=== PATIENT | female | born 1995 | race Caucasian/White ===

== ENCOUNTER 2020-08-05 17:15 | Outpatient (REF) | payer MEDICAID, SELFPAY ==
--- NOTE | ~2020-08-05 | US_ITS ---
EXAMINATION: US VENOUS ULTRASOUND WITH DOPPLER LOWER EXTREMITY, LEFT CLINICAL INFORMATION: Superficial thrombophlebitis. COMPARISON: None TECHNIQUE: Ultrasound of the deep veins is performed from the hip to the calf with compression sonography and color and pulse Doppler assessment. Spectral analysis with color-flow imaging is performed. FINDINGS: There is normal venous compression and respiratory variation and augmented flow. The visualized common femoral vein, superficial femoral vein, profunda femoral vein, popliteal vein, and the trifurcation region shows no evidence of deep venous thrombosis. There is no significant popliteal fossa cyst. Thrombosis of superficial veins in the calf is demonstrated. If the patient's symptoms persist, followup ultrasound in 5 days 7 days might be of value to exclude proximal propagation from a non-visualized calf vein. US/US venous duplex LE LT IMPRESSION: No DVT demonstrated in the left lower extremity. Thrombosis of superficial veins in the calf.
== END 2020-08-05 17:16 | disposition home or self-care (01) ==
LOC: HO.US 17:15
PROVIDERS: PCP Family Medicine; Visit Provider Nurse Practitioner Family
DX: M79.605 Pain in left leg (principal)
CPT/HCPCS: 93971

== ENCOUNTER 2021-07-14 13:48 | Emergency (ER) | payer OTHER, SELFPAY ==
--- NOTE | 2021-07-14 | ECG_ITS ---
Test Reason : abd pain Blood Pressure : / mmHG Vent. Rate : 099 BPM Atrial Rate : 099 BPM P-R Int : 150 ms QRS Dur : 076 ms QT Int : 358 ms P-R-T Axes : 031 035 -36 degrees QTc Int : 459 ms Normal sinus rhythm T wave abnormality, consider anterolateral ischemia Abnormal ECG No previous ECGs available Referred By: Generic ED Physician Electronically Signed By:Mihir Álvarez
--- NOTE | ~2021-07-14 | CT_ITS ---
EXAMINATION: CT CHEST, ABDOMEN AND PELVIS WITH CONTRAST CLINICAL INFORMATION: Back pain radiating to pelvis COMPARISON: No pertinent prior studies are available for comparison. TECHNIQUE: Multidetector volumetric imaging was performed from the thoracic inlet through the pubic symphysis following administration of oral and 85 mL of Omnipaque 300 intravenous contrast. Sagittal and coronal reformatted images were obtained on the technologist workstation. This CT examination was performed using dose optimization techniques as appropriate, variously including the following: *Automated exposure control *Adjustment of mA and/or kV according to patient size (this includes techniques or standardized protocols for targeted exams where dose is matched to indication/reason for exam; i.e. extremities or head) *Use of iterative reconstruction technique DLP: 508 mGy-cm FINDINGS: CHEST: LUNGS: The lungs are clear with no evidence of inflammation or nodules. MEDIASTINUM: The mediastinum is normal. Central vascular structures are unremarkable. No hilar or mediastinal lymphadenopathy. PERICARDIUM/PLEURA: There is no significant effusion. No pleural mass or thickening. CHEST WALL/AXILLA: Unremarkable. ABDOMEN/PELVIS: LIVER, GALLBLADDER, BILIARY TREE: Changes of diffuse hepatic steatosis. The gallbladder is unremarkable with no evidence of radiopaque gallstones, gallbladder wall thickening, or pericholecystic inflammatory changes. PANCREAS: Unremarkable. SPLEEN: Unremarkable. ADRENAL GLANDS: Unremarkable. KIDNEYS AND URETERS: The kidneys are normal in size, shape, and attenuation. No hydronephrosis or hydroureter or calculi seen. No perinephric stranding. BLADDER: Unremarkable. GASTROINTESTINAL TRACT: The small and large bowel are unremarkable. No inflammatory changes. Mild lymphadenopathy within the mesentery subcentimeter in size and might minor haziness within the root of the mesentery. ABDOMINAL WALL: No hernia is demonstrated. LYMPH NODES: Normal. VASCULAR: Unremarkable. PELVIC VISCERA: Uterus is deviated to the left of midline. The right ovary appears prominent measuring up to 4 cm. This is likely within normal limits for a young female. Left ovary normal. OSSEOUS STRUCTURES: Unremarkable. CT/CT angio chest PE protocol IMPRESSION: 1. No evidence of any dissection or aneurysm. No hemorrhage. 2. Changes of mesenteric lipodystrophy. Prominent right ovary likely physiologic. 3. Hepatomegaly changes of diffuse hepatic steatosis.
[2021-07-14 14:20] VITALS: BP 137/98; PULSE 100; RESP 18; TEMP 36.4; O2SAT 100; BMI 52.2
[2021-07-14] MEDS: Ondansetron ODT 4 MG TAB.RAPDIS TRANSLINGU (15:01)
[2021-07-14 15:29] LABS: MANUAL DIFF FLAG NO
[2021-07-14 15:34] LABS: Appearance Urine CLEAR; Basophils Percent Auto 0.4 % (0-2); Color Urine YELLOW; Eosinophils Absolute Auto 0.1 X10*3/uL (0.0-0.4); Eosinophils Percent Auto 0.6 % (0-4); Glucose Urine UA NEG (NEG); Hematocrit 36.3 % (37.0-47.0); Hemoglobin 10.5 g/dl (12.0-16.0); Imm Gran Abs Auto 0.03 X10*3/uL (0.00-0.03); Imm Gran Pct Auto 0.3 % (0.0-0.4); Leukocyte Esterase Urine NEG (NEG); Lymphocytes Absolute Auto 0.9 X10*3/uL (1.2-4.9); Lymphocytes Percent Auto 8.9 % (20-40); Mean Corpuscular HGB Conc 28.9 g/dl (31.0-35.0); Mean Corpuscular Hemoglobin 23.9 pg (27.0-33.0); Mean Corpuscular Volume 82.5 fL (80.0-98.0); Mean Platelet Volume 10.6 fL (9.4-12.3); Monocytes Absolute Auto 0.7 X10*3/uL (0.1-1.2); Monocytes Percent Auto 6.8 % (2-11); Neutrophils Absolute Auto 7.9 x10*3/uL (2.0-8.3); Nitrite Urine NEG (NEG); Platelet Count 350 X10*3/uL (160-400); Red Cell Distribution Width 18.2 % (11.0-16.0); UACC Culture Trigger NO; Urine Blood 2+ (NEG); Urine Ketones NEG (NEG); Urine Protein 2+ MG/DL (NEG-TRACE); White Blood Count 9.6 X10*3/uL (4.8-10.8)
[2021-07-14 15:39] LABS: UPreg QC Valid YES; Urine Pregnancy NEGATIVE (NEGATIVE)
[2021-07-14 15:50] LABS: Bacteria Urine 2+ /LPF; Squamous Epithelial Cell Urine 2+ /LPF; UACC CULT YES
[2021-07-14 15:51] LABS: Hyaline Casts Urine 0-2 /LPF
[2021-07-14 15:53] LABS: Anion Gap 14 (12-20); Blood Urea Nitrogen 8 mg/dL (9-16); Calcium 9.4 mg/dL (8.4-10.2); Carbon Dioxide 25 mmol/L (22-29); Chloride 104 mmol/L (96-108); Creatinine Clr Calc Pharmacy 114.9; Estimated Glomerular Filt Rate > 60; Glucose Random 99 mg/dL (60-115); Sodium 139 mmol/L (135-145)
--- NOTE | 2021-07-14 15:56 | ED.ABDPAIN ---
HPI - Abdominal Pain General Chief Complaint: Abdominal Pain <Courtney Orellana NP - Last Filed: 07/14/21 17:53> Stated Complaint: back pain low bp <Courtney Orellana NP - Last Filed: 07/14/21 17:53> Time Seen by Provider: 07/14/21 14:52 <Courtney Orellana NP - Last Filed: 07/14/21 17:53> Source: patient <Courtney Orellana NP - Last Filed: 07/14/21 17:53> Mode of arrival: ambulatory <Courtney Orellana NP - Last Filed: 07/14/21 17:53> Limitations: no limitations <Courtney Orellana NP - Last Filed: 07/14/21 17:53> History of Present Illness HPI narrative: 25 yo Female with a history of pulmonary embolism several years ago not currently on anticoagulation, morbid obesity, hypertension, hypothyroidism, asthma here with complaints of lower back pain with radiation to the pelvis noted this morning. Patient tells me that she decided to into the shower and while she was there she felt very lightheaded like she was going to pass out. She got out of shower and checked her blood pressure and was 83/45. Patient tells me she sat down and ate some food in her blood pressure improved without any intervention. Of note the patient did take her blood pressure medications prior To getting into the shower. Patient tells me now she feels pain in her upper abdomen and she had 1 episode of vomiting prior to arrival. Patient denies any chest pain, shortness of breath, cough, fever, leg swelling or leg pain. Patient is unsure why she had the PE in the past and had negative w/u from hematology per patient. <Courtney Orellana NP - Last Filed: 07/14/21 17:53> Related Data Home Medications: Home Medications Medication Instructions Recorded Confirmed doxycycline calcium 100 mg PO DAILY 11/24/20 01/24/21 ergocalciferol (vitamin D2) 1,250 1 cap PO QWEEK 11/24/20 01/24/21 mcg (50,000 unit) capsule ferrous sulfate 325 mg (65 mg 1 tab PO Q OTHER DAY 11/24/20 01/24/21 iron) tablet levothyroxine 125 mcg tablet 1 tab PO DAILY 11/24/20 01/24/21 lisinopril 10 mg tablet 1 tab PO DAILY 11/24/20 01/24/21 Previous Rx's Medication Instructions Recorded nitrofurantoin 100 mg PO Q12H 5 Days #10 cap 07/14/21 monohydrate/macrocrystals 100 mg capsule (Macrobid) <BROOKLYN Mckeon Last Filed: 07/14/21 17:53> Allergies/Adverse Reactions: Allergies Allergy/AdvReac Type Severity Reaction Status Date / Time Sulfa (Sulfonamide Allergy Hives Verified 01/24/21 14:36 Antibiotics) sulfamethoxazole Allergy Swelling Verified 01/24/21 14:36 [From Bactrim] trimethoprim [From Bactrim] Allergy Swelling Verified 01/24/21 14:36 <Courtney Orellana NP - Last Filed: 07/14/21 17:53> Review of Systems Review of Systems Yes all other systems are reviewed and are negative <BROOKLYN Mckeon Last Filed: 07/14/21 17:53> Constitutional: Reports no additional constitutional complaints, Denies body ache(s), Denies chills, Denies fever(s), Denies headache(s) and Denies weakness <BROOKLYN Mckeon Last Filed: 07/14/21 17:53> Eyes: Reports no additional eye complaints and Denies change in vision <Courtney Orellana NP - Last Filed: 07/14/21 17:53> Reports system reviewed and no additional complaints, except as documented, Reports dizziness, Denies headache(s), Denies nasal congestion, Denies nasal discharge and Denies neck pain <Courtney Orellana NP - Last Filed: 07/14/21 17:53> Cardiovascular: Reports no additional cardiovascular complaints, Denies chest pain, Denies leg edema and Denies dyspnea <BROOKLYN Mckeon Last Filed: 07/14/21 17:53> Respiratory: Reports no additional respiratory complaints, Denies cough and Denies dyspnea <BROOKLYN Mckeon Last Filed: 07/14/21 17:53> Gastrointestinal: Reports no additional gastrointestinal complaints, Reports abdominal pain, Denies diarrhea, Reports nausea and Reports vomiting <Courtney Orellana NP - Last Filed: 07/14/21 17:53> Genitourinary: Reports no additional female genitourinary complaints and Denies urinary incontinence <Courtney Orellana NP - Last Filed: 07/14/21 17:53> Musculoskeletal: Reports no additional musculoskeletal complaints, Reports back pain, Denies arthralgias, Denies joint swelling, Denies neck pain, Denies numbness and Denies tingling <Courtney Orellana NP - Last Filed: 07/14/21 17:53> Skin/Breast: Reports system reviewed and no additional complaints, except as docu and Denies rash <Courtney Orellana NP - Last Filed: 07/14/21 17:53> Reports system reviewed and no additional complaints, except as documented, Reports dizziness, Denies headache(s), Denies numbness, Denies tingling and Denies weakness <Courtney Orellana NP - Last Filed: 07/14/21 17:53> [facility] Past Medical History Attestation statement: The following information was validated with the patient. <Courtney Orellana NP - Last Filed: 07/14/21 17:53> Source: old records reviewed and nursing notes reviewed <Courtney Orellana NP - Last Filed: 07/14/21 17:53> Medical History: Medical History Anemia Asthma Hidradenitis suppurativa High blood pressure History of pulmonary embolism Hypothyroidism <Courtney Orellana NP - Last Filed: 07/14/21 17:53> Surgical History: Surgical History No pertinent past surgical history <Courtney Orellana NP - Last Filed: 07/14/21 17:53> Family History Family History: Family History Mother Diabetes type 2, controlled Sister Diabetes type 2, controlled Maternal Grandmother ALS (amyotrophic lateral sclerosis) Hypothyroidism Unknown Lupus Unknown High blood pressure <Courtney Orellana NP - Last Filed: 07/14/21 17:53> Social History Social History: Social History Household Members: Family Alcohol intake: never Patient Tobacco Use Status: Never used Tobacco Use of substances other than those prescribed or required for medical reasons: No Advance Directives: No Advance Directives Information Provided: No <Courtney Orellana NP - Last Filed: 07/14/21 17:53> Physical Exam ED Vital Signs: Vital Signs - 24 hr 07/14/21 14:20 07/14/21 16:13 07/14/21 18:13 Temperature 97.5 F 98.2 F 98.9 F Pulse Rate 100 95 95 Respiratory Rate 18 18 22 H Blood Pressure 137/98 H 110/54 L 126/77 Pulse Oximetry 100 99 99 07/14/21 19:42 07/14/21 21:53 07/15/21 00:09 Temperature 98.7 F 99.1 F Pulse Rate 98 99 101 H Respiratory Rate 18 20 20 Blood Pressure 139/87 136/85 110/51 L Pulse Oximetry 100 98 99 BMI result Body Mass Index 52.2 <Courtney Orellana NP - Last Filed: 07/14/21 17:53> Vital Signs - 24 hr 07/14/21 14:20 07/14/21 16:13 07/14/21 18:13 Temperature 97.5 F 98.2 F 98.9 F Pulse Rate 100 95 95 Respiratory Rate 18 18 22 H Blood Pressure 137/98 H 110/54 L 126/77 Pulse Oximetry 100 99 99 07/14/21 19:42 07/14/21 21:53 07/15/21 00:09 Temperature 98.7 F 99.1 F Pulse Rate 98 99 101 H Respiratory Rate 18 20 20 Blood Pressure 139/87 136/85 110/51 L Pulse Oximetry 100 98 99 BMI result Body Mass Index 52.2 <DAHIANA Dunaway - Last Filed: 07/15/21 00:24> Const General: cooperative, healthy appearing and no acute distress <Courtney Orellana NP - Last Filed: 07/14/21 17:53> Nutritional Appearance: obese <Courtney Orellana NP - Last Filed: 07/14/21 17:53> Orientation/consciousness: patient oriented x3 <Courtney Orellana NP - Last Filed: 07/14/21 17:53> Limitations: no limitations <Courtney Orellana NP - Last Filed: 07/14/21 17:53> HENMT Head: Yes normal to inspection <Courtney Orellana NP - Last Filed: 07/14/21 17:53> Ears: hearing grossly normal bilaterally <Courtney Orellana NP - Last Filed: 07/14/21 17:53> General nose exam: Normal external nose present <Courtney Orellana NP - Last Filed: 07/14/21 17:53> Face and sinus: Yes normal facial exam <Courtney Orellana NP - Last Filed: 07/14/21 17:53> Mouth: Normal oral and palatal mucosa present <Courtney Orellana NP - Last Filed: 07/14/21 17:53> Teeth and gingiva: dentition normal <Courtney Orellana NP - Last Filed: 07/14/21 17:53> Throat: Yes posterior oropharynx normal, Yes tonsils normal and Yes uvula midline <Courtney Orellana NP - Last Filed: 07/14/21 17:53> Eyes General: appearance normal, both eyes and all related structures <Courtney Orellana NP - Last Filed: 07/14/21 17:53> Pupils: Equal, round and reactive pupils present <Courtney Orellana NP - Last Filed: 07/14/21 17:53> Neck Neck: Yes normal visual inspection, Yes full ROM, Yes no lymphadenopathy and Yes no meningeal signs <Courtney Orellana NP - Last Filed: 07/14/21 17:53> Chest Chest palpation & inspection: normal inspection of the chest <Courtney Orellana NP - Last Filed: 07/14/21 17:53> Resp Effort & Inspection: normal respiratory effort <Courtney Orellana NP - Last Filed: 07/14/21 17:53> Auscultation: clear to auscultation bilaterally <Courtney Orellana NP - Last Filed: 07/14/21 17:53> Cardio Rate: regular rate <Courtney Orellana NP - Last Filed: 07/14/21 17:53> Rhythm: regular rhythm <Courtney Orellana NP - Last Filed: 07/14/21 17:53> Peripheral pulses: Peripheral pulses 2+ throughout <Courtney Orellana NP - Last Filed: 07/14/21 17:53> GI Inspection: Yes normal to inspection <Courtney Orellana NP - Last Filed: 07/14/21 17:53> Palpation (GI): Soft to palpation and Tenderness to palpation present (GI) (epigastric/RUQ TTP ) <Courtney Orellana NP - Last Filed: 07/14/21 17:53> General: Yes no CVA tenderness <Courtney Orellana NP - Last Filed: 07/14/21 17:53> Back/Spine/Pelvis Other: There is some tenderness the lower spine with no midline tenderness, step-offs deformities. There is full range of motion. <Courtney Orellana NP - Last Filed: 07/14/21 17:53> Back: no CVA tenderness <Courtney Orellana NP - Last Filed: 07/14/21 17:53> Skin General skin exam: no rashes or lesions noted <Courtney Orellana NP - Last Filed: 07/14/21 17:53> Neuro General: patient oriented x3, moves all extremities and no meningeal signs <Courtney Orellana NP - Last Filed: 07/14/21 17:53> Cranial nerves: Yes Equal, round and reactive pupils present <Courtney Orellana NP - Last Filed: 07/14/21 17:53> Extrem General: Yes normal to inspection, Yes no pedal edema and Yes no calf tenderness <Courtney Orellana NP - Last Filed: 07/14/21 17:53> Course Course Course Narrative: 25-year-old female with a history of obesity, high blood pressure, pulmonary embolism not on blood thinning medication, hypothyroidism here with reports of back pain with radiation to the abdominal area today with a near syncopal episode that occurred while she was showering with subsequent vomiting. On exam the patient has some tenderness in the abdomen. No CVA tenderness. She does have some soft tissue tenderness the low spine. She has a history of pulmonary embolism is not currently anticoagulated. She has T-wave inversions diffusely in her EKG. no chest pain. will check labs, EKG, UA, urine . Anticipate patient will need imaging <Courtney Orellana NP - Last Filed: 07/14/21 17:53> Reevaluation(s) Reevaluation #1: CTA CHEST, CT A/P ordered and pending. Sign out to Astrid TALBOT pending imaging. <Courtney Orellana NP - Last Filed: 07/14/21 17:53> Time: 18:00 <Courtney Orellana NP - Last Filed: 07/14/21 17:53> Reevaluation #2: Second troponin negative. Patient not experiencing chest pain unlikely that this is ACS. CT of the abdomen and pelvis with no evidence of dissection or aneurysm. No hemorrhage. No acute findings. Will call [facility], to ask for a read on CTA to rule out PE. <DAHIANA Dunaway - Last Filed: 07/15/21 00:24> Time: 19:28 <DAHIANA Dunaway - Last Filed: 07/15/21 00:24> Reevaluation #3: CTA scan of the chest was limited however no evidence signs of large pe no evidence of right heart strain. Patient is saturating well on room air, she is not tachycardic, appears well unlikely PE. Trop negative X2 unlikley acs. Patient reports that her pain has subsided. She reports no shortness of breath, no chest pain. On my examination she has no calf tenderness on palpation she denies leg pain, leg cramping, or tenderness of the calf area. Patient tells me she is feeling better and would like to go home. Attached to findings from abdominal CT and CTA to patient's discharge. Advised her to return with new or worsening symptoms. Outlined worrisome signs and symptoms on discharge. Comfortable w/ discharge home w/ pcp follow up Upon discharge patient had clear lungs. Regular rate and rhythm. Negative Adrián bilaterally. And stable vitals. <DHAIANA Dunaway - Last Filed: 07/15/21 00:24> Time: 00:21 <DAHIANA Dunaway - Last Filed: 07/15/21 00:24> MDM - Abdominal Pain MDM Narrative Medical decision making narrative: Renal colic, pe, ACS <Courtney Orellana NP - Last Filed: 07/14/21 17:53> Medical Records Attestation: I reviewed the patient's medical records. <Courtney Orellana NP - Last Filed: 07/14/21 17:53> Lab Data Attestation: I reviewed the patient's lab results. <Courtney Orellana NP - Last Filed: 07/14/21 17:53> Result diagrams: : 07/14/21 14:59 07/14/21 14:59 <Courtney Orellana NP - Last Filed: 07/14/21 17:53> Labs: Lab Results 07/14/21 07/14/21 07/14/21 Range/Units 14:59 14:59 14:59 WBC 9.6 (4.8-10.8) X10*3/uL RBC 4.40 (4.20-5.50) X10*6/uL Hgb 10.5 L (12.0-16.0) g/dl Hct 36.3 L (37.0-47.0) % MCV 82.5 (80.0-98.0) fL MCH 23.9 L (27.0-33.0) pg MCHC 28.9 L (31.0-35.0) g/dl RDW 18.2 H (11.0-16.0) % Plt Count 350 (160-400) X10*3/uL MPV 10.6 (9.4-12.3) fL Immature Gran % (Auto) 0.3 (0.0-0.4) % Neut % (Auto) 83.0 H (45-73) % Lymph % (Auto) 8.9 L (20-40) % [place] % (Auto) 6.8 (2-11) % Eos % (Auto) 0.6 (0-4) % Baso % (Auto) 0.4 (0-2) % Lymph # (Auto) 0.9 L (1.2-4.9) X10*3/uL [place] # (Auto) 0.7 (0.1-1.2) X10*3/uL Eos # (Auto) 0.1 (0.0-0.4) X10*3/uL Baso # (Auto) 0.0 (0.0-0.2) X10*3/uL Abs Immat Gran (auto) 0.03 (0.00-0.03) X10*3/uL Absolute Neuts (auto) 7.9 (2.0-8.3) x10*3/uL Absolute Nucleated RBC 0.000 (0.0-0.012) X10*3/uL Nucleated RBC % (auto) 0.0 (0.0-0.2) /100WBC PT (9.9-13.0) SEC INR (0.9-1.1) Sodium (135-145) mmol/L Potassium (3.3-5.1) mmol/L Chloride (96-108) mmol/L Carbon Dioxide (22-29) mmol/L Anion Gap (12-20) BUN (9-16) mg/dL Creatinine (0.5-1.4) mg/dL Estim Creat Clear Calc Estimated GFR Random Glucose (60-115) mg/dL Calcium (8.4-10.2) mg/dL Magnesium (1.6-2.6) mg/dL Total Bilirubin (0.0-1.0) mg/dL Direct Bilirubin (0.0-0.5) mg/dL AST (5-31) U/L ALT (0-31) U/L Alkaline Phosphatase (39-117) U/L Troponin I High Sens (<3.5-17.0) ng/L Total Protein (6.5-8.0) g/dL Albumin (3.5-5.0) g/dL Urine Color YELLOW Urine Appearance CLEAR Urine pH 7.0 (5.0-8.0) Ur Specific [place] 1.020 (1.005-1.025) Urine Protein 2+ H (NEG-TRACE) MG/DL Urine Glucose (UA) NEG (NEG) MG/DL Urine Ketones NEG (NEG) MG/DL Urine Blood 2+ H (NEG) Urine Nitrite NEG (NEG) Ur Leukocyte Esterase NEG (NEG) Urine RBC 15-29 H (0) /HPF Urine WBC 5-9 H (0-4) /HPF Ur Squamous Epith Cells 2+ /LPF Urine Bacteria 2+ /LPF Hyaline Casts 0-2 /LPF Urine Test NEGATIVE (NEGATIVE) 07/14/21 07/14/21 07/14/21 Range/Units 14:59 16:12 16:12 WBC (4.8-10.8) X10*3/uL RBC (4.20-5.50) X10*6/uL Hgb (12.0-16.0) g/dl Hct (37.0-47.0) % MCV (80.0-98.0) fL MCH (27.0-33.0) pg MCHC (31.0-35.0) g/dl RDW (11.0-16.0) % Plt Count (160-400) X10*3/uL MPV (9.4-12.3) fL Immature Gran % (Auto) (0.0-0.4) % Neut % (Auto) (45-73) % Lymph % (Auto) (20-40) % [place] % (Auto) (2-11) % Eos % (Auto) (0-4) % Baso % (Auto) (0-2) % Lymph # (Auto) (1.2-4.9) X10*3/uL [place] # (Auto) (0.1-1.2) X10*3/uL Eos # (Auto) (0.0-0.4) X10*3/uL Baso # (Auto) (0.0-0.2) X10*3/uL Abs Immat Gran (auto) (0.00-0.03) X10*3/uL Absolute Neuts (auto) (2.0-8.3) x10*3/uL Absolute Nucleated RBC (0.0-0.012) X10*3/uL Nucleated RBC % (auto) (0.0-0.2) /100WBC PT 13.8 H (9.9-13.0) SEC INR 1.2 H (0.9-1.1) Sodium 139 (135-145) mmol/L Potassium 4.0 (3.3-5.1) mmol/L Chloride 104 (96-108) mmol/L Carbon Dioxide 25 (22-29) mmol/L Anion Gap 14 (12-20) BUN 8 L (9-16) mg/dL Creatinine 0.84 (0.5-1.4) mg/dL Estim Creat Clear Calc 114.9 Estimated GFR > 60 Random Glucose 99 (60-115) mg/dL Calcium 9.4 (8.4-10.2) mg/dL Magnesium 2.2 (1.6-2.6) mg/dL Total Bilirubin 0.6 (0.0-1.0) mg/dL Direct Bilirubin 0.2 (0.0-0.5) mg/dL AST 67 H (5-31) U/L ALT 85 H (0-31) U/L Alkaline Phosphatase 92 (39-117) U/L Troponin I High Sens 3.9 (<3.5-17.0) ng/L Total Protein 8.0 (6.5-8.0) g/dL Albumin 4.2 (3.5-5.0) g/dL Urine Color Urine Appearance Urine pH (5.0-8.0) Ur Specific [place] (1.005-1.025) Urine Protein (NEG-TRACE) MG/DL Urine Glucose (UA) (NEG) MG/DL Urine Ketones (NEG) MG/DL Urine Blood (NEG) Urine Nitrite (NEG) Ur Leukocyte Esterase (NEG) Urine RBC (0) /HPF Urine WBC (0-4) /HPF Ur Squamous Epith Cells /LPF Urine Bacteria /LPF Hyaline Casts /LPF Urine Test (NEGATIVE) 07/14/21 Range/Units 18:13 WBC (4.8-10.8) X10*3/uL RBC (4.20-5.50) X10*6/uL Hgb (12.0-16.0) g/dl Hct (37.0-47.0) % MCV (80.0-98.0) fL MCH (27.0-33.0) pg MCHC (31.0-35.0) g/dl RDW (11.0-16.0) % Plt Count (160-400) X10*3/uL MPV (9.4-12.3) fL Immature Gran % (Auto) (0.0-0.4) % Neut % (Auto) (45-73) % Lymph % (Auto) (20-40) % [place] % (Auto) (2-11) % Eos % (Auto) (0-4) % Baso % (Auto) (0-2) % Lymph # (Auto) (1.2-4.9) X10*3/uL [place] # (Auto) (0.1-1.2) X10*3/uL Eos # (Auto) (0.0-0.4) X10*3/uL Baso # (Auto) (0.0-0.2) X10*3/uL Abs Immat Gran (auto) (0.00-0.03) X10*3/uL Absolute Neuts (auto) (2.0-8.3) x10*3/uL Absolute Nucleated RBC (0.0-0.012) X10*3/uL Nucleated RBC % (auto) (0.0-0.2) /100WBC PT (9.9-13.0) SEC INR (0.9-1.1) Sodium (135-145) mmol/L Potassium (3.3-5.1) mmol/L Chloride (96-108) mmol/L Carbon Dioxide (22-29) mmol/L Anion Gap (12-20) BUN (9-16) mg/dL Creatinine (0.5-1.4) mg/dL Estim Creat Clear Calc Estimated GFR Random Glucose (60-115) mg/dL Calcium (8.4-10.2) mg/dL Magnesium (1.6-2.6) mg/dL Total Bilirubin (0.0-1.0) mg/dL Direct Bilirubin (0.0-0.5) mg/dL AST (5-31) U/L ALT (0-31) U/L Alkaline Phosphatase (39-117) U/L Troponin I High Sens < 3.5 (<3.5-17.0) ng/L Total Protein (6.5-8.0) g/dL Albumin (3.5-5.0) g/dL Urine Color Urine Appearance Urine pH (5.0-8.0) Ur Specific [place] (1.005-1.025) Urine Protein (NEG-TRACE) MG/DL Urine Glucose (UA) (NEG) MG/DL Urine Ketones (NEG) MG/DL Urine Blood (NEG) Urine Nitrite (NEG) Ur Leukocyte Esterase (NEG) Urine RBC (0) /HPF Urine WBC (0-4) /HPF Ur Squamous Epith Cells /LPF Urine Bacteria /LPF Hyaline Casts /LPF Urine Test (NEGATIVE) <Courtney Orellana NP - Last Filed: 07/14/21 17:53> Lab Results 07/14/21 07/14/21 07/14/21 Range/Units 14:59 14:59 14:59 WBC 9.6 (4.8-10.8) X10*3/uL RBC 4.40 (4.20-5.50) X10*6/uL Hgb 10.5 L (12.0-16.0) g/dl Hct 36.3 L (37.0-47.0) % MCV 82.5 (80.0-98.0) fL MCH 23.9 L (27.0-33.0) pg MCHC 28.9 L (31.0-35.0) g/dl RDW 18.2 H (11.0-16.0) % Plt Count 350 (160-400) X10*3/uL MPV 10.6 (9.4-12.3) fL Immature Gran % (Auto) 0.3 (0.0-0.4) % Neut % (Auto) 83.0 H (45-73) % Lymph % (Auto) 8.9 L (20-40) % [place] % (Auto) 6.8 (2-11) % Eos % (Auto) 0.6 (0-4) % Baso % (Auto) 0.4 (0-2) % Lymph # (Auto) 0.9 L (1.2-4.9) X10*3/uL [place] # (Auto) 0.7 (0.1-1.2) X10*3/uL Eos # (Auto) 0.1 (0.0-0.4) X10*3/uL Baso # (Auto) 0.0 (0.0-0.2) X10*3/uL Abs Immat Gran (auto) 0.03 (0.00-0.03) X10*3/uL Absolute Neuts (auto) 7.9 (2.0-8.3) x10*3/uL Absolute Nucleated RBC 0.000 (0.0-0.012) X10*3/uL Nucleated RBC % (auto) 0.0 (0.0-0.2) /100WBC PT (9.9-13.0) SEC INR (0.9-1.1) Sodium (135-145) mmol/L Potassium (3.3-5.1) mmol/L Chloride (96-108) mmol/L Carbon Dioxide (22-29) mmol/L Anion Gap (12-20) BUN (9-16) mg/dL Creatinine (0.5-1.4) mg/dL Estim Creat Clear Calc Estimated GFR Random Glucose (60-115) mg/dL Calcium (8.4-10.2) mg/dL Magnesium (1.6-2.6) mg/dL Total Bilirubin (0.0-1.0) mg/dL Direct Bilirubin (0.0-0.5) mg/dL AST (5-31) U/L ALT (0-31) U/L Alkaline Phosphatase (39-117) U/L Troponin I High Sens (<3.5-17.0) ng/L Total Protein (6.5-8.0) g/dL Albumin (3.5-5.0) g/dL Urine Color YELLOW Urine Appearance CLEAR Urine pH 7.0 (5.0-8.0) Ur Specific [place] 1.020 (1.005-1.025) Urine Protein 2+ H (NEG-TRACE) MG/DL Urine Glucose (UA) NEG (NEG) MG/DL Urine Ketones NEG (NEG) MG/DL Urine Blood 2+ H (NEG) Urine Nitrite NEG (NEG) Ur Leukocyte Esterase NEG (NEG) Urine RBC 15-29 H (0) /HPF Urine WBC 5-9 H (0-4) /HPF Ur Squamous Epith Cells 2+ /LPF Urine Bacteria 2+ /LPF Hyaline Casts 0-2 /LPF Urine Test NEGATIVE (NEGATIVE) 07/14/21 07/14/21 07/14/21 Range/Units 14:59 16:12 16:12 WBC (4.8-10.8) X10*3/uL RBC (4.20-5.50) X10*6/uL Hgb (12.0-16.0) g/dl Hct (37.0-47.0) % MCV (80.0-98.0) fL MCH (27.0-33.0) pg MCHC (31.0-35.0) g/dl RDW (11.0-16.0) % Plt Count (160-400) X10*3/uL MPV (9.4-12.3) fL Immature Gran % (Auto) (0.0-0.4) % Neut % (Auto) (45-73) % Lymph % (Auto) (20-40) % [place] % (Auto) (2-11) % Eos % (Auto) (0-4) % Baso % (Auto) (0-2) % Lymph # (Auto) (1.2-4.9) X10*3/uL [place] # (Auto) (0.1-1.2) X10*3/uL Eos # (Auto) (0.0-0.4) X10*3/uL Baso # (Auto) (0.0-0.2) X10*3/uL Abs Immat Gran (auto) (0.00-0.03) X10*3/uL Absolute Neuts (auto) (2.0-8.3) x10*3/uL Absolute Nucleated RBC (0.0-0.012) X10*3/uL Nucleated RBC % (auto) (0.0-0.2) /100WBC PT 13.8 H (9.9-13.0) SEC INR 1.2 H (0.9-1.1) Sodium 139 (135-145) mmol/L Potassium 4.0 (3.3-5.1) mmol/L Chloride 104 (96-108) mmol/L Carbon Dioxide 25 (22-29) mmol/L Anion Gap 14 (12-20) BUN 8 L (9-16) mg/dL Creatinine 0.84 (0.5-1.4) mg/dL Estim Creat Clear Calc 114.9 Estimated GFR > 60 Random Glucose 99 (60-115) mg/dL Calcium 9.4 (8.4-10.2) mg/dL Magnesium 2.2 (1.6-2.6) mg/dL Total Bilirubin 0.6 (0.0-1.0) mg/dL Direct Bilirubin 0.2 (0.0-0.5) mg/dL AST 67 H (5-31) U/L ALT 85 H (0-31) U/L Alkaline Phosphatase 92 (39-117) U/L Troponin I High Sens 3.9 (<3.5-17.0) ng/L Total Protein 8.0 (6.5-8.0) g/dL Albumin 4.2 (3.5-5.0) g/dL Urine Color Urine Appearance Urine pH (5.0-8.0) Ur Specific [place] (1.005-1.025) Urine Protein (NEG-TRACE) MG/DL Urine Glucose (UA) (NEG) MG/DL Urine Ketones (NEG) MG/DL Urine Blood (NEG) Urine Nitrite (NEG) Ur Leukocyte Esterase (NEG) Urine RBC (0) /HPF Urine WBC (0-4) /HPF Ur Squamous Epith Cells /LPF Urine Bacteria /LPF Hyaline Casts /LPF Urine Test (NEGATIVE) 07/14/21 Range/Units 18:13 WBC (4.8-10.8) X10*3/uL RBC (4.20-5.50) X10*6/uL Hgb (12.0-16.0) g/dl Hct (37.0-47.0) % MCV (80.0-98.0) fL MCH (27.0-33.0) pg MCHC (31.0-35.0) g/dl RDW (11.0-16.0) % Plt Count (160-400) X10*3/uL MPV (9.4-12.3) fL Immature Gran % (Auto) (0.0-0.4) % Neut % (Auto) (45-73) % Lymph % (Auto) (20-40) % [place] % (Auto) (2-11) % Eos % (Auto) (0-4) % Baso % (Auto) (0-2) % Lymph # (Auto) (1.2-4.9) X10*3/uL [place] # (Auto) (0.1-1.2) X10*3/uL Eos # (Auto) (0.0-0.4) X10*3/uL Baso # (Auto) (0.0-0.2) X10*3/uL Abs Immat Gran (auto) (0.00-0.03) X10*3/uL Absolute Neuts (auto) (2.0-8.3) x10*3/uL Absolute Nucleated RBC (0.0-0.012) X10*3/uL Nucleated RBC % (auto) (0.0-0.2) /100WBC PT (9.9-13.0) SEC INR (0.9-1.1) Sodium (135-145) mmol/L Potassium (3.3-5.1) mmol/L Chloride (96-108) mmol/L Carbon Dioxide (22-29) mmol/L Anion Gap (12-20) BUN (9-16) mg/dL Creatinine (0.5-1.4) mg/dL Estim Creat Clear Calc Estimated GFR Random Glucose (60-115) mg/dL Calcium (8.4-10.2) mg/dL Magnesium (1.6-2.6) mg/dL Total Bilirubin (0.0-1.0) mg/dL Direct Bilirubin (0.0-0.5) mg/dL AST (5-31) U/L ALT (0-31) U/L Alkaline Phosphatase (39-117) U/L Troponin I High Sens < 3.5 (<3.5-17.0) ng/L Total Protein (6.5-8.0) g/dL Albumin (3.5-5.0) g/dL Urine Color Urine Appearance Urine pH (5.0-8.0) Ur Specific [place] (1.005-1.025) Urine Protein (NEG-TRACE) MG/DL Urine Glucose (UA) (NEG) MG/DL Urine Ketones (NEG) MG/DL Urine Blood (NEG) Urine Nitrite (NEG) Ur Leukocyte Esterase (NEG) Urine RBC (0) /HPF Urine WBC (0-4) /HPF Ur Squamous Epith Cells /LPF Urine Bacteria /LPF Hyaline Casts /LPF Urine Test (NEGATIVE) <DAHIANA Dunaway - Last Filed: 07/15/21 00:24> ECG Data Attestation: I personally reviewed and interpreted this ECG as follows: <Courtney Orellana NP - Last Filed: 07/14/21 17:53> ECG interpretation date: 07/14/21 <Courtney Orellana NP - Last Filed: 07/14/21 17:53> ECG interpretation time: 14:42 <Courtney Orellana NP - Last Filed: 07/14/21 17:53> Interpretation: normal sinus rhythm with a rate of 99, normal CA, normal QRS , normal QT diffuse ST depressions leads V1 through V6 <Courtney Orellana NP - Last Filed: 07/14/21 17:53> Critical Care Time Critical Care Time Critical Care Time: No <DAHIANA Dunaway - Last Filed: 07/15/21 00:24> Discharge Plan Discharge Clinical Impression: UTI (urinary tract infection), Near syncope, Acute electrocardiogram changes <Courtney Orellana NP - Last Filed: 07/14/21 17:53> Patient Disposition: Still a Patient <Courtney Orellana NP - Last Filed: 07/14/21 17:53> Instructions: Urinary Tract Infection in Women (DC), Near Syncope (ED) <Courtney Orellana NP - Last Filed: 07/14/21 17:53> Additional Instructions: Take your medications as prescribed. If you were prescribed antibiotics today, it is important that you take your medication to their entirety, do not skip any doses, do not finish them early. Follow-up with your primary care provider this week. Return to the emergency department with new or worsening symptoms. Such as fevers, chills, chest pain, shortness of breath, nausea, vomiting, dizziness, headache, vision changes, lethargy, weakness, leg swelling, calf pain In case of emergency call 911 <BROOKLYN Mckeon Last Filed: 07/14/21 17:53> Prescriptions: New nitrofurantoin monohyd/m-cryst [Macrobid] 100 mg capsule 100 mg PO Q12H 5 Days Qty: 10 0RF Rx Instructions: must administer with a meal/food No Action ferrous sulfate 325 mg (65 mg iron) tablet 1 tab PO Q OTHER DAY 0RF levothyroxine 125 mcg tablet 1 tab PO DAILY 0RF lisinopril 10 mg tablet 1 tab PO DAILY 0RF ergocalciferol (vitamin D2) 1,250 mcg (50,000 unit) capsule 1 cap PO QWEEK 0RF doxycycline calcium 100 mg PO DAILY 0RF <Courtney Orellana NP - Last Filed: 07/14/21 17:53> Referrals: Rosalind Silva DO [Primary Care Provider] - 2 days <Courtney Orellana NP - Last Filed: 07/14/21 17:53> Stand Alone Forms: Work/School Release <Courtney Orellana NP - Last Filed: 07/14/21 17:53>
[2021-07-14 16:13] VITALS: BP 110/54; PULSE 95; RESP 18; TEMP 36.8; O2SAT 99
--- NOTE | 2021-07-14 16:14 | PC.NURSE ---
pt a&ox3, iv inserted, labs drawn, vss, will continue to monitor
[2021-07-14 16:20] LABS: Alanine Aminotransferase 85 U/L (0-31); Albumin Level 4.2 g/dL (3.5-5.0); Alkaline Phosphatase 92 U/L (39-117); Aspartate Amino Transferase 67 U/L (5-31); Bilirubin Direct 0.2 mg/dL (0.0-0.5); Bilirubin Total 0.6 mg/dL (0.0-1.0); Magnesium 2.2 mg/dL (1.6-2.6)
[2021-07-14 16:38] LABS: INTERNATIONAL NORM RATIO 1.2 (0.9-1.1); Prothrombin Time 13.8 SEC (9.9-13.0)
[2021-07-14 16:48] LABS: Troponin-I High Sensitivity 3.9 ng/L (<3.5-17.0)
[2021-07-14] MEDS: iohexoL 350 MG/ML 100 ML INFUS..BTL IV (17:28)
[2021-07-14 18:13] VITALS: BP 126/77; PULSE 95; RESP 22; TEMP 37.2; O2SAT 99
[2021-07-14 18:42] LABS: Troponin-I High Sensitivity < 3.5 ng/L (<3.5-17.0)
[2021-07-14 19:42] VITALS: BP 139/87; PULSE 98; RESP 18; TEMP 37.1; O2SAT 100
--- NOTE | 2021-07-14 19:43 | PC.NURSE ---
patient a&ox3, vss, pt c/o 4-08/08 pain, pt awaiting for testing results, call [place] within reach, will continue to monitor.
[2021-07-14 21:53] VITALS: BP 136/85; PULSE 99; RESP 20; TEMP 37.3; O2SAT 98
[2021-07-14] MEDS: Morphine Sulfate 2 MG/ML CARTRIDGE IVPUSH (22:39)
--- NOTE | 2021-07-14 22:41 | PC.NURSE ---
patient a&ox3, vss, c/o 09/08 abd pain, pt medicated per order, call [place] within reach, will continue to monitor.
[2021-07-15 00:09] VITALS: BP 110/51; PULSE 101; RESP 20; O2SAT 99
== END 2021-07-15 00:43 | disposition home or self-care (01) ==
PROVIDERS: Emergency Medicine; Nurse Practitioner Family; Emergency Provider Emergency Medicine; PCP Family Medicine
DX: N39.0 Urinary tract infection, site not specified (principal); M54.50 Low back pain, unspecified; R10.2 Pelvic and perineal pain; I10 Essential (primary) hypertension; Z79.01 Long term (current) use of anticoagulants; Z86.711 Personal history of pulmonary embolism; Z79.899 Other long term (current) drug therapy
CPT/HCPCS: 36415; 71275; 74177; 80048; 80076; 81001; 81025; 83735; 84484; 85025; 85610; 87086; 87147; 93005; 96374; 99284; 99285; J2270; Q9967

== ENCOUNTER 2021-09-13 19:47 | Emergency (ER) | payer OTHER, SELFPAY ==
--- NOTE | ~2021-09-13 | US_ITS ---
EXAMINATION: US PELVIS CLINICAL INFORMATION: Pelvic mass COMPARISON: CT abdomen pelvis earlier this evening TECHNIQUE: Ultrasound of the pelvis is performed using both transabdominal and transvaginal transducers along with Doppler. Transvaginal imaging is performed due to inadequate visualization transabdominally. FINDINGS: Uterus: The uterus is anteverted and measures 7.4 x 3.5 x 4.5 cm for a volume of 61 mL. Again seen is a 5.7 x 5.1 x 4.9 cm mass superior to the uterus and slightly to the left midline correlating with the abnormality seen on CT scan. Differential diagnosis would still include a pedunculated fibroid versus a ovarian mass and unfortunately the ultrasound is not definitive in making the diagnosis. As stated in the ultrasound report, pelvic MRI may be necessary to accomplish this is recommended for further evaluation. The double wall endometrial thickness is 0.5 mm. Adnexa: Right ovary measures 3.8 x 3.1 x 4.2 cm for a volume of 26 mL and appears unremarkable with multiple follicles. The left ovary is not seen with certainty. Please see discussion above regarding periuterine mass which could either be related to the ovary or the uterus. No free intraperitoneal fluid is seen. US/US pelvic complete IMPRESSION: 5.7 cm mass left pelvis. Cannot be definitive about whether this is related to the uterus (exophytic fibroid) or an abnormal ovarian mass. Pre and postcontrast pelvic MRI is recommended for further evaluation.
--- NOTE | ~2021-09-13 | CT_ITS ---
EXAMINATION: CT ABDOMEN AND PELVIS WITHOUT CONTRAST CLINICAL INFORMATION: r sided pain . COMPARISON: 07/14/2021. TECHNIQUE: Multidetector volumetric imaging was performed from the superior aspect of the liver through the pubic symphysis without contrast per request. Sagittal and coronal reformatted images were obtained on the technologist workstation. This CT examination was performed using dose optimization techniques as appropriate, variously including the following: *Automated exposure control *Adjustment of mA and/or kV according to patient size (this includes techniques or standardized protocols for targeted exams where dose is matched to indication/reason for exam; i.e. extremities or head) *Use of iterative reconstruction technique DLP: 1170 mGy-cm. FINDINGS: LUNG BASES: Minimal linear atelectatic change. LIVER, GALLBLADDER, BILIARY TREE: Diffuse fatty infiltration of the liver but no focal hepatic lesion nor biliary ductal dilatation. The gallbladder is contracted but otherwise unremarkable with no evidence of radiopaque gallstones, gallbladder wall thickening, or obvious pericholecystic inflammatory changes. PANCREAS: Unremarkable. SPLEEN: Unremarkable. ADRENAL GLANDS: Unremarkable. KIDNEYS AND URETERS: The kidneys are normal in size, shape, and attenuation. No hydronephrosis, hydroureter, or calculi seen. No perinephric stranding. BLADDER: Unremarkable. GASTROINTESTINAL TRACT: The small and large bowel are unremarkable. The appendix is unremarkable. ABDOMINAL WALL: No significant hernia is appreciated. LYMPHOVASCULAR STRUCTURES: No lymphadenopathy. The aorta is unremarkable.. PELVIC VISCERA: There is a lobulated 6.6 cm lesion arising from the left fundal portion uterus. Of uncertain if this represents a very pedunculated fibroid in this location with this is a underlying left ovarian mass in this location. There is fullness to the contralateral right adnexa which measures up to 5.3 cm in size. These are difficult to define further due to body habitus and noncontrast study. Correlation with pelvic ultrasound and/or pelvic MRI may be needed to define these findings further. OSSEUS STRUCTURES: Unremarkable. CT/CT abdomen pelvis wo con IMPRESSION: Bilateral adnexal mass lesions are seen. Uncertain if these represent exophytic fibroids or two separate adnexal masses. This is difficult to define further on this noncontrast study. The left adnexal mass does appear to have slightly increased in size from the prior study in retrospect. On prior examination this appeared to have possibly represented an elongated appearance to the uterus however I believe on the current projection this is more likely adnexal in origin rather than fundal uterine in origin. There is fullness to the contralateral right adnexa which is also slightly increased in size from the prior study. Again pelvic ultrasound and/or pelvic MRI may be helpful to define further.
[2021-09-13 19:58] VITALS: BP 111/48; PULSE 120; RESP 18; TEMP 37; O2SAT 100; BMI 54.4
[2021-09-13 21:15] LABS: MANUAL DIFF FLAG NO
[2021-09-13 21:17] LABS: Basophils Percent Auto 0.4 % (0-2); Eosinophils Absolute Auto 0.1 X10*3/uL (0.0-0.4); Eosinophils Percent Auto 0.7 % (0-4); Hematocrit 29.8 % (37.0-47.0); Hemoglobin 8.9 g/dl (12.0-16.0); Imm Gran Abs Auto 0.03 X10*3/uL (0.00-0.03); Imm Gran Pct Auto 0.3 % (0.0-0.4); Lymphocytes Absolute Auto 0.8 X10*3/uL (1.2-4.9); Lymphocytes Percent Auto 7.7 % (20-40); Mean Corpuscular HGB Conc 29.9 g/dl (31.0-35.0); Mean Corpuscular Hemoglobin 22.4 pg (27.0-33.0); Mean Corpuscular Volume 74.9 fL (80.0-98.0); Monocytes Absolute Auto 0.5 X10*3/uL (0.1-1.2); Neutrophils Absolute Auto 8.9 x10*3/uL (2.0-8.3); Neutrophils Percent Auto 85.9 % (45-73); Platelet Count 451 X10*3/uL (160-400); Red Blood Count 3.98 X10*6/uL (4.20-5.50); Red Cell Distribution Width 17.5 % (11.0-16.0); White Blood Count 10.4 X10*3/uL (4.8-10.8)
[2021-09-13 21:18] LABS: Appearance Urine HAZY; Color Urine YELLOW; Glucose Urine UA NEG (NEG); Leukocyte Esterase Urine TRACE (NEG); Nitrite Urine POS (NEG); PH 7.5 (5.0-8.0); Specific Gravity - Urine 1.015 (1.005-1.025); UACC Culture Trigger YES; Urine Blood 3+ (NEG); Urine Ketones NEG (NEG); Urine Protein 1+ MG/DL (NEG-TRACE)
--- NOTE | 2021-09-13 21:25 | ED_ITS ---
HPI - Abdominal Pain General Chief Complaint: Abdominal Pain Stated Complaint: lower abd pain Time Seen by Provider: 09/13/21 21:25 Source: patient Mode of arrival: ambulatory Limitations: no limitations History of Present Illness HPI narrative: Patient complaining of pain in the right mid and lower abdomen for last few months patient was seen here on 08/[address] scan done which showed no kidney stones or gallstones , adnexa was on the right side. Patient denies any nausea or vomiting no fever no chills no diarrhea Related Data Home Medications Medication Instructions Recorded Confirmed doxycycline calcium 100 mg PO DAILY 11/24/20 01/24/21 ergocalciferol (vitamin D2) 1,250 1 cap PO QWEEK 11/24/20 01/24/21 mcg (50,000 unit) capsule ferrous sulfate 325 mg (65 mg 1 tab PO Q OTHER DAY 11/24/20 01/24/21 iron) tablet levothyroxine 125 mcg tablet 1 tab PO DAILY 11/24/20 01/24/21 lisinopril 10 mg tablet 1 tab PO DAILY 11/24/20 01/24/21 Previous Rx's Medication Instructions Recorded nitrofurantoin 100 mg PO Q12H 5 days #10 caps 07/14/21 monohydrate/macrocrystals 100 mg capsule (Macrobid) cefuroxime axetil 500 mg tablet 500 mg PO BID #14 tabs 09/14/21 oxycodone 5 mg tablet 5 mg PO Q6H PRN Pain, Severe #20 09/14/21 tabs Allergies Allergy/AdvReac Type Severity Reaction Status Date / Time Sulfa (Sulfonamide Allergy Hives Verified 01/24/21 14:36 Antibiotics) sulfamethoxazole Allergy Swelling Verified 01/24/21 14:36 [From Bactrim] trimethoprim [From Bactrim] Allergy Swelling Verified 01/24/21 14:36 Review of Systems Review of Systems Yes all other systems are reviewed and are negative PMFSH Past Medical History Medical History Anemia Asthma Hidradenitis suppurativa High blood pressure Hypothyroidism Surgical History No pertinent past surgical history Family History Family History Mother Diabetes type 2, controlled Sister Diabetes type 2, controlled Maternal Grandmother ALS (amyotrophic lateral sclerosis) Hypothyroidism Unknown Lupus Unknown High blood pressure Social History Social History Household Members: Family Alcohol intake: never Patient Tobacco Use Status: Never used Tobacco Use of substances other than those prescribed or required for medical reasons: No Advance Directives: No Advance Directives Information Provided: No Patient : No Physical Exam ED Vital Signs: Vital Signs - 24 hr 09/13/21 19:58 09/13/21 22:00 09/14/21 00:53 Temperature 98.6 F 98.6 F 100 F Pulse Rate 120 H 121 H 130 H Respiratory Rate 18 15 16 Blood Pressure 111/48 L 150/88 H 136/85 Pulse Oximetry 100 100 100 Oxygen Delivery Method Room Air Room Air Room Air BMI result Body Mass Index 54.4 Appearance: Alert. Oriented X3. No acute distress. Eyes: No pallor or icterus ENT: Pharynx normal. Oral Mucosa moist Neck: Normal inspection. Neck supple. CVS: Normal heart rate and rhythm. Pulses normal. Respiratory: No respiratory distress. Equal air entry bilateral, no wheezing/rales/rhonchi Abdomen: Soft tenderness right mid and lower abdomen no rebound tenderness or guarding limited exam as patient is obese Bowel sounds are present, no mass palpable, no CVA tenderness Skin: Skin warm and dry. Normal skin color. Normal skin turgor. Extremities: No lower extremity edema. No calf tenderness Neuro: Oriented X 3. No motor deficit. MDM - Abdominal Pain MDM Narrative Medical decision making narrative: Patient with L adnexal mass 5x5x5 cmwith pain on the right side likely the cause of the patient's UTI will discharge patient home on Ceftin and pain medication adnexal mass was seen in previous CT scan also done on 07/21 Lab Data Attestation: I reviewed the patient's lab results. Result diagrams: 09/13/21 21:06 09/13/21 21:06 Labs: Lab Results 09/13/21 09/13/21 09/13/21 Range/Units 21:06 21:06 21:06 WBC 10.4 (4.8-10.8) X10*3/uL RBC 3.98 L (4.20-5.50) X10*6/uL Hgb 8.9 L (12.0-16.0) g/dl Hct 29.8 L (37.0-47.0) % MCV 74.9 L (80.0-98.0) fL MCH 22.4 L (27.0-33.0) pg MCHC 29.9 L (31.0-35.0) g/dl RDW 17.5 H (11.0-16.0) % Plt Count 451 H D (160-400) X10*3/uL MPV 9.0 L (9.4-12.3) fL Immature Gran % (Auto) 0.3 (0.0-0.4) % Neut % (Auto) 85.9 H (45-73) % Lymph % (Auto) 7.7 L (20-40) % [place] % (Auto) 5.0 (2-11) % Eos % (Auto) 0.7 (0-4) % Baso % (Auto) 0.4 (0-2) % Lymph # (Auto) 0.8 L (1.2-4.9) X10*3/uL [place] # (Auto) 0.5 (0.1-1.2) X10*3/uL Eos # (Auto) 0.1 (0.0-0.4) X10*3/uL Baso # (Auto) 0.0 (0.0-0.2) X10*3/uL Abs Immat Gran (auto) 0.03 (0.00-0.03) X10*3/uL Absolute Neuts (auto) 8.9 H (2.0-8.3) x10*3/uL Absolute Nucleated RBC 0.000 (0.0-0.012) X10*3/uL Nucleated RBC % (auto) 0.0 (0.0-0.2) /100WBC Sodium 138 (135-145) mmol/L Potassium 3.9 (3.3-5.1) mmol/L Chloride 102 (96-108) mmol/L Carbon Dioxide 27 (22-29) mmol/L Anion Gap 13 (12-20) BUN 12 (9-16) mg/dL Creatinine 0.78 (0.5-1.4) mg/dL Estim Creat Clear Calc 127.1 Estimated GFR > 60 Random Glucose 118 H (60-115) mg/dL Calcium 8.8 D (8.4-10.2) mg/dL Total Bilirubin 0.4 (0.0-1.0) mg/dL Direct Bilirubin 0.2 (0.0-0.5) mg/dL AST 77 H (5-31) U/L ALT 104 H (0-31) U/L Alkaline Phosphatase 92 (39-117) U/L Total Protein 7.8 (6.5-8.0) g/dL Albumin 4.1 (3.5-5.0) g/dL Urine Color YELLOW Urine Appearance HAZY Urine pH 7.5 (5.0-8.0) Ur Specific [place] 1.015 (1.005-1.025) Urine Protein 1+ H (NEG-TRACE) MG/DL Urine Glucose (UA) NEG (NEG) MG/DL Urine Ketones NEG (NEG) MG/DL Urine Blood 3+ H (NEG) Urine Nitrite POS H (NEG) Ur Leukocyte Esterase TRACE H (NEG) Urine RBC TNTC H (0) /HPF Urine WBC 1-4 (0-4) /HPF Ur Squamous Epith Cells 2+ /LPF Urine Bacteria 3+ /LPF Urine Mucus TRACE /LPF Urine Test (NEGATIVE) 09/13/21 Range/Units 21:06 WBC (4.8-10.8) X10*3/uL RBC (4.20-5.50) X10*6/uL Hgb (12.0-16.0) g/dl Hct (37.0-47.0) % MCV (80.0-98.0) fL MCH (27.0-33.0) pg MCHC (31.0-35.0) g/dl RDW (11.0-16.0) % Plt Count (160-400) X10*3/uL MPV (9.4-12.3) fL Immature Gran % (Auto) (0.0-0.4) % Neut % (Auto) (45-73) % Lymph % (Auto) (20-40) % [place] % (Auto) (2-11) % Eos % (Auto) (0-4) % Baso % (Auto) (0-2) % Lymph # (Auto) (1.2-4.9) X10*3/uL [place] # (Auto) (0.1-1.2) X10*3/uL Eos # (Auto) (0.0-0.4) X10*3/uL Baso # (Auto) (0.0-0.2) X10*3/uL Abs Immat Gran (auto) (0.00-0.03) X10*3/uL Absolute Neuts (auto) (2.0-8.3) x10*3/uL Absolute Nucleated RBC (0.0-0.012) X10*3/uL Nucleated RBC % (auto) (0.0-0.2) /100WBC Sodium (135-145) mmol/L Potassium (3.3-5.1) mmol/L Chloride (96-108) mmol/L Carbon Dioxide (22-29) mmol/L Anion Gap (12-20) BUN (9-16) mg/dL Creatinine (0.5-1.4) mg/dL Estim Creat Clear Calc Estimated GFR Random Glucose (60-115) mg/dL Calcium (8.4-10.2) mg/dL Total Bilirubin (0.0-1.0) mg/dL Direct Bilirubin (0.0-0.5) mg/dL AST (5-31) U/L ALT (0-31) U/L Alkaline Phosphatase (39-117) U/L Total Protein (6.5-8.0) g/dL Albumin (3.5-5.0) g/dL Urine Color Urine Appearance Urine pH (5.0-8.0) Ur Specific [place] (1.005-1.025) Urine Protein (NEG-TRACE) MG/DL Urine Glucose (UA) (NEG) MG/DL Urine Ketones (NEG) MG/DL Urine Blood (NEG) Urine Nitrite (NEG) Ur Leukocyte Esterase (NEG) Urine RBC (0) /HPF Urine WBC (0-4) /HPF Ur Squamous Epith Cells /LPF Urine Bacteria /LPF Urine Mucus /LPF Urine Test NEGATIVE (NEGATIVE) Discharge Plan Discharge Clinical Impression: Pelvic mass in female, UTI (urinary tract infection) Patient Disposition: Home, Self-Care Instructions: Urinary Tract Infection in Women (ED), Abdominal Pain (ED) Additional Instructions: Drink plenty of fluids Antibiotic and pain medicine as advised Follow-up with seafood team member for further evaluation and management of the left pelvic mass Prescriptions: New cefuroxime axetil 500 mg tablet 500 mg PO BID Qty: 14 0RF oxycodone 5 mg tablet 5 mg PO Q6H PRN (Reason: Pain, Severe) Qty: 20 0RF Rx Instructions: Partial Fill upon patient request. No Action ferrous sulfate 325 mg (65 mg iron) tablet 1 tab PO Q OTHER DAY levothyroxine 125 mcg tablet 1 tab PO DAILY lisinopril 10 mg tablet 1 tab PO DAILY ergocalciferol (vitamin D2) 1,250 mcg (50,000 unit) capsule 1 cap PO QWEEK doxycycline calcium 100 mg PO DAILY nitrofurantoin monohyd/m-cryst [Macrobid] 100 mg capsule 100 mg PO Q12H 5 Days Qty: 10 0RF Rx Instructions: must administer with a meal/food Referrals: Hamlet Zendejas MD [Physician] - 1 week Interventions: ED Discharge Assessment Last Done: 09/14/21 01:33 Discharge Date/Time: 09/14/21 01:33
[2021-09-13 21:34] LABS: UPreg QC Valid YES; Urine Pregnancy NEGATIVE (NEGATIVE)
[2021-09-13 21:36] LABS: Bacteria Urine 3+ /LPF; Mucus Urine TRACE /LPF; RBC Urine TNTC /HPF (0); Squamous Epithelial Cell Urine 2+ /LPF
[2021-09-13 21:38] LABS: Alanine Aminotransferase 104 U/L (0-31); Albumin Level 4.1 g/dL (3.5-5.0); Alkaline Phosphatase 92 U/L (39-117); Anion Gap 13 (12-20); Aspartate Amino Transferase 77 U/L (5-31); Bilirubin Direct 0.2 mg/dL (0.0-0.5); Bilirubin Total 0.4 mg/dL (0.0-1.0); Blood Urea Nitrogen 12 mg/dL (9-16); Calcium 8.8 mg/dL (8.4-10.2); Carbon Dioxide 27 mmol/L (22-29); Chloride 102 mmol/L (96-108); Creatinine Clr Calc Pharmacy 127.1; Estimated Glomerular Filt Rate > 60; Glucose Random 118 mg/dL (60-115); Potassium 3.9 mmol/L (3.3-5.1); Sodium 138 mmol/L (135-145); Total Protein 7.8 g/dL (6.5-8.0)
[2021-09-13 22:00] VITALS: BP 150/88; PULSE 121; RESP 15; TEMP 37; O2SAT 100
[2021-09-14] MEDS: oxyCODONE HCl Immed Release 5 MG TABLET 10 MG PO (00:51)
[2021-09-14 00:53] VITALS: BP 136/85; PULSE 130; RESP 16; TEMP 37.7; O2SAT 100
== END 2021-09-14 01:33 | disposition home or self-care (01) ==
PROVIDERS: Emergency Provider Internal Medicine; PCP Family Medicine
DX: N39.0 Urinary tract infection, site not specified (principal); R19.03 Right lower quadrant abdominal swelling, mass and lump; J45.909 Unspecified asthma, uncomplicated
CPT/HCPCS: 36415; 74176; 76856; 80053; 81001; 81025; 82248; 85025; 87086; 99284

== ENCOUNTER 2023-01-29 11:38 | Outpatient (REF) | payer OTHER, SELFPAY ==
--- NOTE | ~2023-01-29 | US_ITS ---
EXAMINATION: US VENOUS WITH DOPPLER UPPER EXTREMITY, RIGHT CLINICAL INFORMATION: Pain, discoloration, post IV puncture COMPARISON: None available. TECHNIQUE: Ultrasound of the upper extremity is performed using compression sonography and color and pulse Doppler flow with assessment of augmentation of flow. There is also imaging and Doppler assessment of the jugular and subclavian veins. Spectral analysis with color-flow imaging is performed. FINDINGS: The right basilic vein is noncompressible with evidence of thrombus within it. Otherwise, respiratory variation, normal compression, and augmented flow are noted throughout the upper extremity. Axillary, brachial, cubital, and radial and ulnar veins. There is normal flow in the internal jugular and subclavian veins. There is no visible deep or superficial thrombophlebitis. The contralateral subclavian vein demonstrates normal respiratory variation. US/US venous duplex UE RT IMPRESSION: No DVT demonstrated in the right upper extremity. There is thrombus within the right basilic vein. This is a superficial vein. Preliminary results were given to Rosalind Mead via [place] by the technologist.
== END 2023-01-29 11:39 | disposition home or self-care (01) ==
LOC: HO.US 11:38
PROVIDERS: PCP Family Medicine; Visit Provider Family Medicine
DX: R60.0 Localized edema (principal); M79.604 Pain in right leg
CPT/HCPCS: 93971

== ENCOUNTER 2023-08-07 12:53 | Outpatient (REF) | payer MEDICAID, SELFPAY ==
[2023-08-07 16:29] LABS: Hematocrit 44.5 % (37.0-47.0); Hemoglobin 14.1 g/dl (12.0-16.0); Mean Corpuscular HGB Conc 31.7 g/dl (31.0-35.0); Mean Corpuscular Hemoglobin 26.9 pg (27.0-33.0); Mean Corpuscular Volume 84.9 fL (80.0-98.0); Platelet Count 308 X10*3/uL (160-400); Red Blood Count 5.24 X10*6/uL (4.20-5.50); Red Cell Distribution Width 26.5 % (11.0-16.0); White Blood Count 4.5 X10*3/uL (4.8-10.8)
[2023-08-07 16:46] LABS: Iron 79 mcg/dL (30-160); Percent Iron Saturation 26 % (15-50); Total Iron Binding Capacity 302 mcg/dL (228-428); Unsaturated Iron Binding 223 ug/dL
[2023-08-07 17:07] LABS: Ferritin 264 ng/mL (10-122); Free T4 (Free Thyroxine) 1.12 ng/dL (0.71-1.85); Thyroid Stimulating Hormone 7.26 uIU/mL (0.32-4.0)
[2023-08-07 17:23] LABS: Folate 10.8 ng/mL (> or = 4.0); Vitamin B12 312 pg/mL (200-900)
== END 2023-08-07 12:54 | disposition home or self-care (01) ==
LOC: HO.HHCL 12:53
PROVIDERS: Visit Provider Family Medicine
DX: R79.89 Other specified abnormal findings of blood chemistry (principal); D64.9 Anemia, unspecified
CPT/HCPCS: 36415; 82607; 82728; 82746; 83540; 84439; 84443; 85027

== ENCOUNTER 2023-08-20 10:42 | Outpatient (REF) | payer MEDICAID, SELFPAY ==
--- NOTE | ~2023-08-20 | US_ITS ---
EXAMINATION: US PELVIS CLINICAL INFORMATION: Cyst left ovary, last menstrual period May 2023. COMPARISON: Pelvic ultrasound 09/13/2021. TECHNIQUE: Ultrasound of the pelvis is performed using both transabdominal and transvaginal transducers along with Doppler. Transvaginal imaging is performed due to inadequate visualization transabdominally. FINDINGS: Uterus is anteverted and measures 9.4 x 3.2 x 4.2 cm. No discrete fibroids are visualized. Endometrium poorly visualized due to bowel gas. Transvaginal ultrasound images recommended for further evaluation. Center Mgr states that patient declined transvaginal ultrasound imaging at the time of the exam. Poorly imaged possible segment of endometrium with possible thickness of 4 mm, although measurements are unreliable due to severely limited visualization. Right ovary measures 3.7 x 3.2 x 3.8 cm, volume 24.0 mL and is grossly unremarkable on limited images. Left ovary measures 5.0 x 5.5 x 5.1 cm, volume 73.4 mL. A 4.3 x 5.2 x 4.2 cm left ovarian cyst. US/US pelvic complete IMPRESSION: 1. Severely limited visualization due to bowel gas. Patient declined transvaginal ultrasound images. Transvaginal ultrasound imaging is recommended if patient is agreeable for better visualization. 2. Endometrium poorly visualized as detailed above. 3. Right ovary grossly unremarkable on limited images. 4. Left ovarian 5.2 cm cyst difficult to characterize with limited visualization Recommend follow-up ultrasound in 6-8 weeks.
== END 2023-08-20 10:43 | disposition home or self-care (01) ==
LOC: HO.US 10:42
PROVIDERS: PCP Family Medicine; Visit Provider Family Medicine
DX: N83.202 Unspecified ovarian cyst, left side (principal)
CPT/HCPCS: 76856

== ENCOUNTER 2023-10-14 09:17 | Outpatient (REF) | payer MEDICAID, SELFPAY ==
[2023-10-17 02:58] LABS: TS Negative Control Passed; TS Panel A 1; TS Panel B 2; TS Positive Control Passed; TSpotTB Negative (Negative)
== END 2023-10-14 09:18 | disposition home or self-care (01) ==
LOC: HO.HHCL 09:17
PROVIDERS: Visit Provider Family Medicine
DX: Z11.1 Encounter for screening for respiratory tuberculosis (principal)
CPT/HCPCS: 36415; 86481

== ENCOUNTER 2023-11-20 11:04 | Outpatient (REF) | payer MEDICAID, SELFPAY ==
--- NOTE | ~2023-11-20 | US_ITS ---
EXAMINATION: US PELVIS CLINICAL INFORMATION: Followed ovarian cyst, last menstrual period September 15, 2023. COMPARISON: 11/20/2023 TECHNIQUE: Ultrasound of the pelvis is performed using both transabdominal and transvaginal transducers along with Doppler. Limited visualization due to bowel gas. Patient declined transvaginal ultrasound images due to personal reasons FINDINGS: There uterus is anteverted and measures 8.8 x 2.8 x 3.1 cm. Limited visualization due to bowel gas. Patient declined transvaginal ultrasound images due to personal reasons Endometrial thickness is 3 mm. No significant free fluid. Right ovary measures 3.7 x 3.4 x 3.3 cm, volume 21.7 mL. Left ovary measures 5.6 x 6.1 x 5.2 cm, volume 92.9 mL. Left ovarian cyst measures 4.1 x 5.0 x 3.9 cm. Limited visualization of the bilateral ovaries due to bowel gas. US/US pelvic and transvaginal IMPRESSION: 1. Left ovarian cyst measures 5.0 cm. Recommend follow-up ultrasound in 6-8 weeks. 2. Limited visualization due to bowel gas. Patient declined transvaginal ultrasound images due to personal reasons . Transvaginal ultrasound imaging could be considered for better visualization if patient agrees. Electronically signed by: Kerri Magallon MD 12/04/2023 10:23 AM EDT
== END 2023-11-20 11:05 | disposition home or self-care (01) ==
LOC: HO.US 11:04
PROVIDERS: PCP Family Medicine; Visit Provider Family Medicine
DX: N83.202 Unspecified ovarian cyst, left side (principal)
CPT/HCPCS: 76830; 76856

== ENCOUNTER 2024-07-07 11:19 | Outpatient (REF) | payer MEDICAID, SELFPAY ==
[2024-07-07 13:36] LABS: Hematocrit 41.4 % (37.0-47.0); Hemoglobin 13.7 g/dl (12.0-16.0); Mean Corpuscular HGB Conc 33.1 g/dl (31.0-35.0); Mean Corpuscular Hemoglobin 26.9 pg (27.0-33.0); Mean Corpuscular Volume 81.3 fL (80.0-98.0); Mean Platelet Volume 10.3 fL (9.4-12.3); Platelet Count 327 X10*3/uL (160-400); Red Blood Count 5.09 X10*6/uL (4.20-5.50); Red Cell Distribution Width 15.9 % (11.0-16.0); White Blood Count 3.3 X10*3/uL (4.8-10.8)
[2024-07-07 13:52] LABS: Estimated Average Glucose 120 mg/dL; Hemoglobin A1C 142.1525 umol/L; Hemoglobin A1c % 5.8 % (<6.0); Total Hemoglobin (HGBA1C) 3566.5896 umol/L
[2024-07-07 13:56] LABS: Creatinine Urine 54.01 mg/dL
--- OUTSIDE RECORDS SUMMARY | 2024-07-07 13:57 | XMS_ITS | Clinical Summary ---
Author Organization [employer] Address [address] [place] [address] 7 [place] [address] Care Team Providers Care Printing Supplies Sales Representative Name Role Phone ShiraRosalind Primary Care Provider Allergies Active Allergy Reactions Criticality Noted Date Comments Ferumoxytol 08/07/2023 Sulfa Antibiotics Rash Low 12/09/2017 Erythroderma, fever, and neutropenia temporally related to TMP/SMX given for skin infection Sulfamethoxazole 09/19/2011 Sulfamethoxazole-Trimethoprim Rash Low 2022 Trimethoprim 05/28/2018 Medications cholecalciferol (Vitamin D-3) 50 MCG (1999 UT) capsule TAKE 1 CAPSULE BY MOUTH EVERY DAY 90 capsule 3 04/29/2023 Active Multiple Vitamin (Multivitamin Adult) tablet Take 1 tablet by mouth Once per day. 90 tablet 3 08/07/2023 Active EpiPen 2-Mina 0.3 MG/0.3ML injection syringe Inject 0.3 mg into the muscle. 06/17/2023 Active lisinopril 5 MG tablet Take 1 tablet (5 mg) by mouth Once per day. 90 tablet 3 11/27/2023 Active metFORMIN XR (Glucophage-XR) 500 MG 24 hr tablet TAKE 1 TABLET BY MOUTH EVERY DAY EVENING MEAL 90 tablet 3 11/27/2023 Active levothyroxine (Synthroid, Levoxyl) 175 MCG tablet Take 1 tablet (175 mcg) by mouth Once per day. 90 tablet 3 11/27/2023 Active omeprazole (PriLOSEC) [address] capsule Take 1 capsule (20 mg) by mouth before breakfast. Do not crush or chew. 90 capsule 3 11/27/2023 5 Active hydroCHLOROthia zide (HYDRODiuril) 25 MG tablet Take 1 tablet (25 mg) by mouth Once per day. 90 tablet 3 11/27/2023 5 Active Active Problems Problem Noted Date Diagnosed Date PCOS (polycystic ovarian syndrome) 08/07/2023 Assessment & Plan (08/07/2023 1:28 PM EDT): -cont metformin daily -cont OCPs as per CONTAINER COORDINATOR -f/u with OB-CONTAINER COORDINATOR as scheduled History of pulmonary embolism 08/07/2023 Assessment & Plan (08/07/2023 1:29 PM EDT): Hx of provoked DVT and PE with subsequent phlebitis and superficial thrombosis -will d/w hematology re: need for AC Anxiety 08/07/2023 Cyst of left ovary 08/07/2023 Assessment & Plan (08/07/2023 1:27 PM EDT): -pelvic US with 5.8cm ovarian cyst DEC 2022, referred for repeat -MRI pelvis with 5.6cm benign cyst AUG 2021 -will get copy of most recent US results -she agrees to schedule f/u with OB-CONTAINER COORDINATOR Healthcare maintenance 08/07/2023 Assessment & Plan (08/07/2023 1:29 PM EDT): -s/p flu vaccine JAN 2022 -she declines COVID vaccine -s/p Tdap AUG 2018 -s/p HPV vaccine AUG 2022 -Hep A/B immune -pap nml AUG 2021 -A1c 5.2%, LDL Dec -STI/HIV screening neg DEC 2022 Prediabetes 08/07/2023 Assessment & Plan (08/07/2023 1:28 PM EDT): A1c 5.2% DEC 2022 -will continue to monitor Anemia 08/30/2022 Assessment & Plan (08/07/2023 1:20 PM EDT): s/p iron infusions with hematology -start MVI daily -repeat iron studies today -f/u w/ hematology as scheduled Vitamin D deficiency 08/30/2022 Fatty liver 08/16/2020 Assessment & Plan (08/07/2023 1:19 PM EDT): -AFP and LFTs nml DEC 2022 -Hep A/B immune -CT abd with diffuse hepatic steatosis JUN 2021 -refer for abd US next visit Essential hypertension 12/09/2017 Assessment & Plan (08/07/2023 1:16 PM EDT): BP elevated, asx, with reported nml home BP readings -cont HCTZ and lisinopril daily,advised take meds upon returning home -cont home BP monitoring -Cr/GFR nml DEC 2022 and urine microalbumin nml AUG 2020 -encouraged schedule optho eval -review next visit* BMI 50.0-59.9, adult 11/07/2017 Hidradenitis suppurativa 05/06/2014 Assessment & Plan (08/07/2023 1:28 PM EDT): -cont doxycycline prn acute flare Adjustment disorder with depressed mood 09/19/19 12 Assessment & Plan (08/07/2023 1:26 PM EDT): With anxiety -she denies any SI/HI and has no plans to harm herself -she has the number for crisis -she declines med mgmt at this time -f/u with therapist as scheduled Hypothyroidism 11/23/2009 Assessment & Plan (08/07/2023 1:17 PM EDT): TSH elevated DEC 2022 -cont levothyroxine daily -repeat TFTs today Resolved Problems Problem Noted Date Diagnosed Date Resolved Date PCOS (polycystic ovarian syndrome) 08/07/2023 08/07/2023 Encounters Date Type Department Care Team Description 07/03/2024 Patient Outreach [facility]S [address] [place] [address] Rosalind Silva, Pre-visit Planning (SDOH unable to reach LVM) 06/12/2024 Population Health Risk Score [facility] (C3) Department [address] [place] [id number] Provider, Population Health Generic 05/19/2024 Telephone [facility] [address] [place] [phone] Rosalind Silva DO Recall Appt. 05/19/2024 Travel from Last 3 Months Immunizations Name Administration Dates Next Due DTaP 07/16/2002, 0,07/18/1999,06/09 HPV 9-Valent 08/30/2022,03/27/2021,09/16/2015 HPV, Quadrivalent 08/30/2022,03/27/2021,09/16/19 16 Hep A, Adult 05/08/2018 Hep A, Unspecified 09/16/2015 Hep A, ped/adol, 2 dose 09/16/2015 Hep B, Adolescent or Pediatric 08/17/1999,1999,06/09/1998 Hib (HbOC) 1999, 0,07/18/1999,06/09 IPV 07/16/2002, 0,07/18/1999,06/09 Influenza injectable quadriv alent preservative free 02/20/2022,03/27/2021,04/19/2020,05/06 Influenza, IIV3, injectable 02/20/2022,1 05/28/2020,04/19/2020,05/06,03/02/2008,01/17/2007 Influenza, seasonal, injecta ble, preservative free 01/01/2024 MMR 1999,07/18/1999 Meningococcal ACWY, unspecified 09/16/2015,11/16 Meningococcal MCV4P ACYW-135 09/16/2015,11/17/19 10 Pfizer Covid-19 Vaccine 12+ 01/01/2024 Tdap 09/10/2018,11/16/2009 Varicella 11/16/2009,1999 Social History Tobacco Use Types Packs/Day Years Used Date Smoking Tobacco: Never Smokeless Tobacco: Never Tobacco Cessation:Counseling Given: Not Answered Alcohol Use Standard Drinks/Week Comments Never 0 (1 standard drink = 0.6 oz pur e alcohol) Depression Answer Date Recorded Patient Health Questionnaire-9 Score 5 01/01/2024 Patient Health Questionnaire-9 Score 5 01/01/2024 Last PHQ-9: Questionnaire Data Not on file 1 Housing Stability Answer Date Recorded What is your housing situation today? I have irving johnson 01/20/[address] you li ve. Do you have problems with any of the following? None of the above 01/20/2023 Food Insecurity Answer Date Recorded Within the past 12 months, y ou worried that your food would run out before you got money to buy more: Never True 01/20/2023 Within the past 12 months,th e food you bought just didn't last and you didn't have enough money to get more: Never True Transportation Answer Date Recorded In the past 12 months, has l ack of transportation kept you from medical appts, meetings, work or from getting things needed for daily living? No 06/18/2023 Utilities Answer Date Recorded In the past 12 months, has t he electric, gas, oil or water company threatened to shut off services in your home? No 01/20/2023 Depression Answer Date Recorded Patient Health Questionnaire-2 Score 1 01/01/2024 Comments Unknown Sex and Gender Information Value Date Recorded Sex Assigned at Female 01/29/2022 10:17 AM EDT Legal Sex Female 10:17 AM EDT Gender Identity Female 01/29/2022 10:17 AM EDT Sexual Orientation Straight 08/08/2023 8: 09 PM EDT Last Filed Vital Signs Vital Sign Reading Time Taken Comments Blood Pressure 116/58 01/01/2024 9:45 AM EDT Pulse 88 01/01/2024 9:45 AM EDT Temperature 36 ??C (96.8 ??F) 01/01/2024 9:45 AM EDT Respiratory Rate 18 01/01/2024 9:45 AM EDT Oxygen Saturation 98% 08/07/2023 11:27 AM EDT Inhaled Oxygen Concentration - - Weight 126 kg (277 lb) 01/01/2024 9:45 AM EDT Height 147.3 cm (4' 10 ) 01/01/2024 9:45 AM EDT Body Mass Index 57.89 01/01/2024 9:45 AM EDT Plan of Treatment Upcoming Encounters Date Type Department Care Team (Late st Contact Info) Description 07/10/2024 10:15 AM EDT Office Visit [facility] MED[facility] [address] [place] [address] Rosalind Silva DO [address] [place] [address] Health Maintenance Due Date Last Done Comments Hepatitis B Vaccines (4 of 4 - 4-dose series) 09/12/1999 08/17/1999, 07/18/1999, 06/09/1998 Alcohol/Substance Use Screening 2009 Family Planning (PISQ) 2012 Pap Smear 2018 Diabetes: Hemoglobin A1C 09/15/2021 07/07/2024, 08/30 SDOH Screening 06/17/2024 06/18/2023 Depression Screening 12/31/2024 01/01/2024, 01/01/20 24 Tobacco Screening 12/31/2024 01/01/2024 Lipid Panel 09/15/2025 09/15/2020 DTaP/Tdap/Td Vaccines (7 - Td or Tdap) 09/10/2028 09/10/2018, 11/16/2009, 07/16/2002, Additional history exists Zoster Vaccines (1 of 2) 10/27/2047 RSV Patients and Patients Aged 60 years or older (1 - 1-dose 75+ series) 2072 HIB Vaccines Completed 1999, 07/30, 07/18/1999, Additional history exists IPV Vaccines Completed 07/16/2002, 07/30, 07/18/1999, Additional history exists Meningococcal Vaccine Completed 09/16/2015 , 09/16/2015, 11/16/2009, Additional history exists Hepatitis A Vaccines Completed 05/08/2018, 09/16/2015, 09/16/2015 HIV Screening Completed 09/15/2020 Hepatitis C Screening Completed 09/15/2020 HPV Vaccines Completed 08/30/2022, 04/2022, 03/27/2021, Additional history exists COVID-19 Vaccine Completed 01/01/2024, 07/2021, 09/09/2020, Additional history exists Influenza Vaccine Completed 01/01/2024, , 02/20/2022, Additional history exists Pneumococcal Vaccine: Pediatrics (0 to 5 Years) and At-Risk Patients (6 to 49) Years) Aged Out No longer eligible based on patient's age to complete this topic RSV under 20 months Aged Out No longe r eligible based on patient's age to complete this topic Rotavirus Vaccines Aged Out No longer eligible based on patient's age to complete this topic Procedures Procedure Name Priority Date/Time Associated Diagnosis Comments CBC Routine 07/07/2024 11:26 AM EDT Essential hypertension HEMOGLOBIN A1C Routine 07/07/2024 11:26 AM EDT Essential hypertension ZZZ HISTORICAL HEPATITIS C AB W/REFL TO HCV RNA, QN, PCR Routine 09/15/2020 10:05 AM EDT HIV 1/2 ANTIGEN/ANTIBODY, FOURTH GENERATION W/RFL Routine 09/15/2020 10:05 AM EDT LIPID PANEL, STANDARD Routine 09/15/2020 10:05 AM EDT from Last 3 Months or Most Recently Relevant to Health Maintenance Results * (ABNORMAL) CBC (07/07/2024 11:26 AM EDT) White Blood Count 3.3(L) 4.8 - 10.8 X10*3/uL [facility] Red Blood Count 5.09 4.20 - 5.50 X10*6/uL [facility] Hemoglobin 13.7 12.0 - 16.0 g/dl [facility] Hematocrit 41.4 37.0 - 47.0 % [facility] Mean Corpuscular Volume 81.3 80.0 - 98.0 fL [facility] Mean Corpuscular Hemoglobin 26.9(L) 27.0 - 33.0 pg [facility] Mean Corpuscular HGB Conc 33.1 31.0 - 35.0 g/dl [facility] Red Cell Distribution Width 15.9 11.0 - 16.0 % [facility] Platelet Count 327 160 - 400 X10*3/uL [facility] Mean Platelet Volume 10.3 9.4 - 12.3 fL [facility] NRBC Pct Auto 0.0 0.0 - 0.2 /100WBC [facility] NRBC Abs Auto 0.000 0.0 - 0.012 X10*3/uL [facility] Blood Venous blood specimen / Unknown 07/07/2024 11:26 AM EDT 07/07/2024 1:08 PM EDT Rosalind Silva DO LAB BLOOD ORDERABLES Final R esult Performing Organization Address City/[facility]/ZIP Co de Phone Number [facility] [address] [place] [phone] * Hemoglobin A1c (07/07/2024 11:26 AM EDT) Hemoglobin A1c 5.8 <6.0 % [facility] Comment:Hemoglobin A1C Refer ence Range Adults: 4.8 - 6.0 % Non diabetic: < 6.0 % Goal: < 7.0 %Additional Action Suggested: > 8.0 %Note: Hemoglobin A1c results are invalid for patients with abnormal amounts of HbF. Blood transfusions may impact the HbA1c concentration in the patient sample. Estimated Average Glucose 120 mg/dL [facility] Comment:eAG = Estimated ave rage glucose which is %A1C expressed asaverage glucose, using the formula of the N3S-OjlnkyjOtkdavh Glucose study (ADAG), Diabetes Care, Vol.31,#8,Oct. 2007 Blood Venous blood specimen / Unknown 07/07/2024 11:26 AM EDT 07/07/2024 1:08 PM EDT Rosalind Silva DO LAB BLOOD ORDERABLES Final R esult [facility] [address] [place] [phone] * HEPATITIS C AB W/REFL TO HCV RNA, QN, PCR (09/15/2020 10:05 AM EDT) HEPATITIS C ANTIBODY NON-REACT AQUILES NON-REACT AQUILES [facility] INDEX 0.12 <1.00 [facility] Comment: ?? HCV antibody was non-reactive. There is no laboratory ?? evidence of HCV infection. ?? In most cases, no further action is required. However, if recent HCV exposure is suspected, a test for HCV RNA (test code 63068) is suggested. ?? For additional information please refer to http://[employer].Pix4D/faq/ZWI01p1 (This link is being provided for informational/ educational purposes only.) ?? 09/15/2020 10:0 5 AM EDT Rosalind Silva DO HISTORICAL/NON ORDERABLE LAB S Final Result [facility] [address] * HIV 1/2 ANTIGEN/ANTIBODY,FOURTH GENERATION W/RFL (09/15/2020 10:05 AM EDT) HIV-1/2 ANTIGEN AND ANTIBODIES, 4TH GENERATION W/ REFLEX NON-REACT AQUILES NON-REACT AQUILES [facility] Comment: HIV-1 antigen and HIV-1/HIV-2 antibodies were not detected. There is no laboratory evidence of HIV infection. ?? PLEASE NOTE: This information has been disclosed to you from records whose confidentiality may be protected by state law. ??If your state requires such protection, then the state law prohibits you from making any further disclosure of the information without the specific written consent of the person to whom it pertains, or as otherwise permitted by law. A general authorization for the release of medical or other information is NOT sufficient for this purpose. ? For additional information please refer to http://[employer].Pix[employer]D/faq/NQI615 (This link is being provided for informational/ educational purposes only.) ? The performance of this assay has not been clinically validated in patients less than 2 years old. ?? 09/15/2020 10:0 5 AM EDT Rosalind Silva DO LAB BLOOD ORDERABLES Final R esult Performing Organization Address [facility] de Phone Number [facility] [address] [place] [address], * (ABNORMAL) LIPID PANEL, STANDARD (09/15/2020 10:05 AM EDT) Pathologist [facility] Chol/HDLC Ratio 8.6(H) <5.0 (calc) [facility] Cholesterol, Total 164 <200 mg/dL [facility] HDL Cholesterol 19(L) > OR = 50 mg/dL [facility] LDL Cholesterol 118(H) mg/dL (calc) [facility] Comment: Reference range: <100 ?? Desirable range <100 mg/dL for primary prevention; ?? <70 mg/dL for patients with CHD or diabetic patients ?? with > or = 2 CHD risk factors. ?? LDL-C is now calculated using the Pranav ?? calculation, which is a validated novel method providing ?? better accuracy than the Friedewald equation in the ?? estimation of LDL-C. ?? Samuel MELO et al. JAZZ. 2013;310(19): 2444-9632 ?? (http://education.[employer].Aginova/faq/YDD980) Non-HDL Cholesterol 145(H) <130 mg/dL (calc) [facility] Comment: For patients with diabetes plus 1 major ASCVD risk ?? factor, treating to a non-HDL-C goal of <100 mg/dL ?? (LDL-C of <70 mg/dL) is considered a therapeutic ?? option. Triglycerides 159(H) <150 mg/dL [facility] 09/15/2020 10:0 5 AM EDT Rosalind Silva DO LAB BLOOD ORDERABLES Final R esult Performing Organization Address [facility] de Phone Number [facility] [address] [phone] [[email or web address]] from Last 3 Months or Most Recently Relevant to Health Maintenance Insurance [facility] Care Teams Printing Supplies Sales Representative Relationship Specialty Start Date End Date Rosalind Silva DO [address] [place] [phone] PCP - General Family Medicine 10/27/18
--- OUTSIDE RECORDS SUMMARY | 2024-07-07 13:57 | XMS_ITS | Encounter Summary ---
Author Organization [employer] Address [address] [facility] [address] [place] [address] Care Team Providers Care Dimensional Integration Engineer Name Role Phone Rosalind Silva DO Primary Care Provider [phone] Reason for Visit * Reason Comments Pre-visit Planning SDOH unable to reach LVM Encounter Details Date Type Department Care Team ([facility] st Contact Info) Description 07/03/2024 Patient Outreach [facility] PEDS [address] [place] [address] Rosalind Silva DO [address] [place] [address] Pre-visit Planning (SDOH unable to reach LVM) Social History Tobacco Use Types Packs/Day Years Used Date Smoking Tobacco: Never Smokeless Tobacco: Never Alcohol Use Standard Drinks/Week Comments Never 0 [...] Orientation Straight 08/08/2023 8: 09 PM EDT documented as of this encounter Progress Notes * Iliana Best - 07/03/2024 10:28 AM EDT RALPH Thompson placed outbound call to patient to complete pre-visit planning. No answer at this time. Patient name and were not confirmed. CC left voicemail requesting return call. Direct contactinformation provided. documented in this encounter Plan of Treatment Upcoming Encounters Date Type Department Care Team (Late st Contact Info) Description 07/10/2024 10:15 AM EDT Office Visit [facility] [address] [place] [address] Rosalind Silva DO [address] [place] [address] documented as of this encounter Visit Diagnoses Not on filedocumented in this encounter Additional Health Concerns Assessment Noted Time PHQ-9 Depression Total Score: 5 01/01/20 24 9:45 AM EDT documented as of this encounter Care Teams Dimensional Integration Engineer Relationship Specialty Start Date End Date Rosalind Silva DO [address] [place] [address] PCP - General Family Medicine 10/27/18 documented as of this encounter
--- OUTSIDE RECORDS SUMMARY | 2024-07-07 13:57 | XMS_ITS | Encounter Summary ---
Author Organization [employer] Address [address] [facility] [address] [place] [address] Care Team Providers Care Software Support Specialist Name Role Phone Rosalind Silva DO Primary Care Provider + [phone] Reason for Visit * Reason Comments Med Change Request Encounter Details Date Type Department Care Team (Late st Contact Info) Description 07/03/2023 Refill [facility] [address] [place] [address] Rosalind Silva DO [address] [place], [place] [phone] Social History Tobacco Use Types Packs/Day Years Used Date Smoking Tobacco: Never Smokeless Tobacco: Never Alcohol Use Standard Drinks/Week Comments Never 0 (1 standard drink = 0.6 oz pur e alcohol) Housing Stability Answer Date Recorded What is [...] off services in your home? No 01/20/2023 Comments Unknown Sex and Gender Information Value Date Recorded Sex Assigned at Female 01/29/2022 10:17 AM EDT Legal Sex Female 10:17 AM EDT Gender Identity Female 01/29/2022 10:17 AM EDT Sexual Orientation Straight 08/08/2023 8: 09 PM EDT documented as of this encounter Miscellaneous Notes * Telephone Encounter - Rosalind Silva DO - 07/04/2023 2:15 PM EDT New rx sent. documented in this encounter Plan of Treatment Upcoming Encounters Date Type Department Care Team (Late st Contact Info) Description 07/10/2024 10:15 AM EDT Office Visit [facility] [address] [place] [address] Rosalind Silva DO [address] [place] [address] documented as of this encounter Visit Diagnoses Not on filedocumented in this encounter Care Teams Software Support Specialist Relationship Specialty Start Date End Date Rosalind Silva DO [address] [place] [address] PCP - General Family Medicine 10/27/18 documented as of this encounter
[2024-07-07 14:05] LABS: Microalbum/Creatinine Ratio Ur 1205.3 ug/mg cr (<30)
[2024-07-07 14:31] LABS: Alanine Aminotransferase 28 U/L (0-31); Albumin Level 4.3 g/dL (3.5-5.0); Anion Gap 13 (12-20); Aspartate Amino Transferase 31 U/L (5-31); Bilirubin Direct 0.2 mg/dL (0.0-0.5); Bilirubin Total 0.6 mg/dL (0.0-1.0); Blood Urea Nitrogen 17 mg/dL (9-16); Calcium 9.5 mg/dL (8.4-10.2); Carbon Dioxide 25 mmol/L (22-29); Chloride 104 mmol/L (96-108); Cholesterol 178 mg/dL (<200); Estimated Glomerular Filt Rate > 60; Glucose Random 95 mg/dL (60-115); HDL Cholesterol 30 mg/dL (>40); Iron 75 mcg/dL (30-160); LDL Cholesterol Calculated 124 mg/dL (<100); Percent Iron Saturation 21 % (15-50); Potassium 3.9 mmol/L (3.3-5.1); Sodium 138 mmol/L (135-145); Total Iron Binding Capacity 364 mcg/dL (228-428); Total Protein 8.2 g/dL (6.5-8.0); Triglycerides 122 mg/dL (<150); Unsaturated Iron Binding 289 ug/dL
[2024-07-07 14:45] LABS: Folate 11.7 ng/mL (> or = 4.0); Vitamin B12 247 pg/mL (200-900)
[2024-07-07 14:47] LABS: Alkaline Phosphatase 94 U/L (39-117); Ferritin 20 ng/mL (10-122); Free T4 (Free Thyroxine) 1.09 ng/dL (0.71-1.85); Thyroid Stimulating Hormone 8.12 uIU/mL (0.32-4.0); Vitamin D 25-OH Total 21.7 ng/mL (>30)
[2024-07-07 15:06] LABS: CT PCR NOT DETECTED (Not Detect.); NG PCR NOT DETECTED (Not Detect.)
[2024-07-08 05:10] LABS: Hepatitis A Antibody IgG REACTIVE (Nonreactive); ~Hepatitis A Antibody IgG 3.23 S/CO (0.00-0.99)
[2024-07-08 05:19] LABS: HBS Num1 95.99 mIU/mL (0-7.99); HBc Num1 0.17 S/CO (0.00-0.79); HBsAGNum1 0.25 S/CO (0.00-0.99); HIV AB/AG Nonreactive (Nonreactive); HIV Num 1 0.07 S/CO (0.00-0.99); Hepatitis B Core Antibody Nonreactive (Nonreactive); Hepatitis B Surface Antigen Negative (Negative); ~HepC Num1 0.42 S/CO (0.00-0.79); ~Hepatitis B Surface Antibody REACTIVE (Nonreactive); ~Hepatitis C Antibody Nonreactive (Nonreactive)
[2024-07-08 12:43] LABS: Alpha Fetoprotein 2.5 ng/mL
[2024-07-08 13:43] LABS: RPR Rapid Plasma Reagin REACTIVE (NON-REACTIVE)
== END 2024-07-07 11:20 | disposition home or self-care (01) ==
LOC: HO.HHCL 11:19
PROVIDERS: Visit Provider Family Medicine
DX: I10 Essential (primary) hypertension (principal)
CPT/HCPCS: 80048; 80061; 80076; 82043; 82105; 82306; 82570; 82607; 82728; 82746; 83036; 83540; 84439; 84443; 85027; 86592; 86593; 86704; 86706; 86708; 86803; 87340; 87389; 87491; 87591

== ENCOUNTER 2024-07-14 10:41 | Outpatient (REF) | payer MEDICAID, SELFPAY ==
--- NOTE | ~2024-07-14 | XR_ITS ---
EXAMINATION: XR KNEE 4 OR MORE VIEWS LEFT HISTORY: diffuse joint pain, family h/o RA and lupus COMPARISON: There are no prior studies available for comparison. FINDINGS: Three views of the left knee are submitted. Osseous mineralization is normal. There is no fracture or dislocation. The joint spaces are preserved. The soft tissues are unremarkable. There is no joint effusion. XR/XR knee LT 4V IMPRESSION: Unremarkable examination of the left knee. Electronically signed by: Wei Dunn MD 07/14/2024 01:17 PM EDT
--- NOTE | ~2024-07-14 | XR_ITS ---
EXAMINATION: XR ELBOW 3 VIEWS LEFT HISTORY: diffuse joint pain, family h/o RA and lupus COMPARISON: There are no prior studies available for comparison. FINDINGS: Three views of the left elbow are submitted. Osseous mineralization is normal. There is no fracture or dislocation. The joint spaces are preserved. The soft tissues are unremarkable. There is no joint effusion. XR/XR elbow LT min 3V IMPRESSION: Unremarkable examination of the left elbow. Electronically signed by: Wei Dunn MD 07/14/2024 01:15 PM EDT
--- NOTE | ~2024-07-14 | XR_ITS ---
EXAMINATION: XR KNEE 4 OR MORE VIEWS RIGHT HISTORY: diffuse joint pain, family h/o RA and lupus COMPARISON: There are no prior studies available for comparison. FINDINGS: Three views of the right knee are submitted. Osseous mineralization is normal. There is no fracture or dislocation. The joint spaces are preserved. The soft tissues are unremarkable. There is no joint effusion. XR/XR knee RT 4V IMPRESSION: Unremarkable examination of the right knee. Electronically signed by: Wei Dunn MD 07/14/2024 01:20 PM EDT
--- NOTE | ~2024-07-14 | XR_ITS ---
EXAMINATION: XR ELBOW 3 VIEWS RIGHT HISTORY: diffuse joint pain, family h/o RA and lupus COMPARISON: There are no prior studies available for comparison. FINDINGS: Three views of the right elbow are submitted. Osseous mineralization is normal. There is no fracture or dislocation. The joint spaces are preserved. The soft tissues are unremarkable. There is no joint effusion. XR/XR elbow RT min 3V IMPRESSION: Unremarkable examination of the right elbow. Electronically signed by: Wei Dunn MD 07/14/2024 01:16 PM EDT
--- NOTE | ~2024-07-14 | XR_ITS ---
EXAMINATION: XR HAND 3 VIEWS BILATERAL HISTORY: ARTHRITIS COMPARISON: There are no prior studies available for comparison. FINDINGS: Six views of the bilateral hands are submitted. Osseous mineralization is normal. There is no fracture or dislocation. The joint spaces are preserved. There are no erosions. The soft tissues are unremarkable. XR/XR Hand Bilat min 3v IMPRESSION: Unremarkable examination of the bilateral hands. Electronically signed by: Wei Dunn MD 07/14/2024 01:21 PM EDT
--- OUTSIDE RECORDS SUMMARY | 2024-07-14 12:56 | XMS_ITS | Encounter Summary ---
Author Organization [employer] Address [address] [facility] [address]t [place] [address] Care Team Providers Care Blender Operator Name Role Phone Rosalind Silva DO Primary Care Provider + [phone] Reason for Visit * Reason Comments Med Change Request Encounter Details Date Type Department Care Team (Late st Contact Info) Description 07/03/2023 Refill [facility] [address] [place] [address] Rosalind Silva DO [address] [place], [place] [phone] Social History Tobacco Use Types Packs/Day Years [...] documented in this encounter Plan of Treatment Not on file documented as of this encounter Visit Diagnoses Not on filedocumented in this encounter Care Teams Blender Operator Relationship Specialty Start Date End Date Rosalind Silva DO [address] [place] [phone] PCP - General Family Medicine 10/27/18 documented as of this encounter
--- OUTSIDE RECORDS SUMMARY | 2024-07-14 12:56 | XMS_ITS | Encounter Summary ---
Author Organization [employer] Address [address] [facility] [address] [place] [address] Care Team Providers Care Support Service Tech Name Role Phone Rosalind Silva DO Primary Care Provider [phone] Encounter Details Date Type Department Care Team (Latest Contact Info) Description 07/10/2024 10:15 AM EDT Office Visit [facility] [address] [place], [place] [phone] Rosalind Silva DO [address] [place], [place] [phone] Polyarthralgia (Primary Dx) Social History Tobacco Use Types Packs/Day Years [...] housing situation today? I have irving johnson 07/10/[address] you li ve. Do you have problems with any of the following? None of the above 07/10/2024 Food Insecurity Answer Date Recorded Within the past 12 months, y ou worried that your food would run out before you got money to buy more: Never True 07/10/2024 Within the past 12 months,th e food you bought just didn't last and you didn't have enough money to get more: Never True 01/2025 Transportation Answer Date Recorded In the past 12 months, has l ack of transportation kept you from medical appts, meetings, work or from getting things needed for daily living? No 07/10/2024 Utilities Answer Date Recorded In the past 12 months, has t he electric, gas, oil or water company threatened to shut off services in your home? No 07/10/2024 Depression Answer Date Recorded Patient Health Questionnaire-2 Score 1 01/01/2024 Internet Access Answer Date Recorded Internet Access Q1 Yes 07/10/2024 Internet Access Q2 Not on file 07/10/2024 Comments No Sex and Gender Information Value Date Recorded Sex Assigned at Female 01/29/2022 10:17 AM EDT Legal Sex Female 10:17 AM EDT Gender Identity Female 01/29/2022 10:17 AM EDT Sexual Orientation Straight 08/08/2023 8: 09 PM EDT documented as of this encounter Last Filed Vital Signs Vital Sign Reading Time Taken Comments Blood Pressure 130/70 07/10/2024 10:05 AM EDT Pulse 87 07/10/2024 10:05 AM EDT Temperature 36.8 ??C (98.3 ??F) 07/10/2024 10:05 AM E DT Respiratory Rate 21 07/10/2024 10:05 AM EDT Oxygen Saturation 97% 07/10/2024 10:05 AM EDT Inhaled Oxygen Concentration - - Weight 129 kg (284 lb) 07/10/2024 10:05 AM EDT Height 147.3 cm (4' 10 ) 07/10/2024 10:05 AM EDT Body Mass Index 59.36 07/10/2024 10:05 AM EDT documented in this encounter Plan of Treatment Scheduled Orders Name Type Priority Associated Diagnoses Orde r Schedule XR Hand 3+ Views Right Imaging Routine Polyarthralgia Expected: 07/10/2024, Expires: 07/10/2025 XR Hand 3+ Views Left Imaging Routine Polyarthralgia Expected: 07/10/2024, Expires: 07/10/2025 XR Elbow 3+ Views Left Imaging Routine Polyarthralgia Expected: 07/10/2024, Expires: 07/10/2025 XR Elbow 3+ Views Right Imaging Routine Polyarthralgia Expected: 07/10/2024, Expires: 07/10/2025 XR Knee 4+ Views Left Imaging Routine Polyarthralgia Expected: 07/10/2024, Expires: 07/10/2025 XR Knee 4+ Views Right Imaging Routine Polyarthralgia Expected: 07/10/2024, Expires: 07/10/2025 documented as of this encounter Visit Diagnoses Diagnosis Polyarthralgia- Primary Pain in joint, multiple sites documented in this encounter Additional Health Concerns Assessment Noted Time PHQ-9 Depression Total Score: 5 01/01/20 24 9:45 AM EDT documented as of this encounter Care Teams Support Service Tech Relationship Specialty Start Date End Date Rosalind Silva DO [address] [place] [id number] PCP - General Family Medicine 10/27/18 documented as of this encounter
--- OUTSIDE RECORDS SUMMARY | 2024-07-14 12:56 | XMS_ITS | Encounter Summary ---
Author Organization [employer] Address [address] [facility] [address] [place] [address] Care Team Providers Care Test Engineering Manager Name Role Phone FeliciaRosalind pulido DO Primary Care Provider + [phone] Encounter Details Date Type Department Care Team (Latest Contact Info) Description 07/10/2024 Travel Social History Tobacco Use Types Packs/Day Years [...] t he electric, gas, oil or water [employer] threatened to shut off services in your [...] PM EDT documented as of this encounter Plan of Treatment Not on file documented as of this encounter Visit Diagnoses Not on filedocumented in this encounter Additional Health Concerns Assessment Noted Time PHQ-9 Depression Total Score: 5 01/01/20 24 9:45 AM EDT documented as of this encounter Care Teams Test Engineering Manager Relationship Specialty Start Date End Date Rosalind Silva DO [address] [place] [phone] PCP - General Family Medicine 10/27/18 documented as of this encounter
--- OUTSIDE RECORDS SUMMARY | 2024-07-14 12:56 | XMS_ITS | Clinical Summary ---
Author Organization [facility] Address [address] [place] [address] 7 [place] [address] Care Team Providers Care Guitar Instructor Name Role Phone ShiraRosalind Primary Care Provider Allergies Active Allergy Reactions Criticality Noted Date Comments Ferumoxytol 08/07/2023 Sulfa Antibiotics Rash Low 12/09/2017 Erythroderma, fever, and neutropenia temporally related to TMP/SMX given for skin infection Sulfamethoxazole 09/19/2011 Sulfamethoxazole-Trimethoprim Rash Low 2022 Trimethoprim 05/28/2018 Medications cholecalciferol (Vitamin D-3) 50 MCG (1999 UT) capsule TAKE 1 CAPSULE BY MOUTH EVERY DAY 90 capsule 3 4 Active Multiple Vitamin (Multivitamin Adult) tablet Take 1 tablet by mouth Once per day. 90 tablet 3 4 08/07/19 25 Active EpiPen 2-Mina 0.3 MG/0.3ML injection syringe Inject 0.3 mg into the muscle. 4 Active lisinopril 5 MG tablet Take 1 tablet (5 mg) by mouth Once per day. 90 tablet 3 4 Active metFORMIN XR (Glucophage-XR) 500 MG 24 hr tablet TAKE 1 TABLET BY MOUTH EVERY DAY EVENING MEAL 90 tablet 3 4 Active levothyroxine (Synthroid, Levoxyl) 175 MCG tablet Take 1 tablet (175 mcg) by mouth Once per day. 90 tablet 3 4 Active omeprazole (PriLOSEC) [address] capsule Take 1 capsule (20 mg) by mouth before breakfast. Do not crush or chew. 90 capsule 3 4 11/27/19 25 Active hydroCHLOROthia zide (HYDRODiuril) 25 MG tablet Take 1 tablet (25 mg) by mouth Once per day. 90 tablet 3 4 11/27/19 25 Active norethindrone (Elissa) 0.35 MG tablet Take 0.35 mg by mouth. 4 02/10/20 25 Active cephalexin (Keflex) 500 MG capsule Take 1 capsule (500 mg) by mouth 2 times daily for 7 days. 14 capsule 5 07/18/19 25 Active mupirocin (Bactroban) 2 % ointment Apply topically 3 times daily for 10 days. 22 g 5 07/21/19 25 Active doxycycline (Vibramycin) 100 MG capsule Take 1 capsule (100 mg) by mouth 2 times daily. Take with at least 8 ounces (large glass) of water, do not lie down for 30 minutes after. START AFTER KEFLEX TREATMENT COMPLETED. 60 capsule 5 08/10/19 25 Active Active Problems Problem Noted Date Diagnosed Date PCOS (polycystic ovarian syndrome) 08/07/2023 Assessment & Plan (08/07/2023 1:28 PM EDT): -cont metformin daily -cont OCPs as per SWITCHBOARD OPERATOR RECEPTIONIST -f/u with OB-SWITCHBOARD OPERATOR RECEPTIONIST as scheduled History of pulmonary embolism 08/07/2023 [...] results -she agrees to schedule f/u with OB-SWITCHBOARD OPERATOR RECEPTIONIST Healthcare maintenance 08/07/2023 Assessment & Plan (08/07/2023 [...] Encounters Date Type Department Care Team Description 07/10/2024 10:15 AM EDT Office Visit [facility] MEDICINE [address], [place] [phone] Rosalind Silva DO Polyarthralgia (Primary Dx) 07/10/2024 Travel 07/03/2024 Patient Outreach [facility] MED & PEDS [address], [place] [phone] Rosalind Silva DO Pre-visit Planning (SDOH unable to reach LVM) 06/12/2024 Population Health Risk Score [facility] Department [address] [facility][NOTE 3] [address] [place] [address] Provider, Population Health Generic 05/19/2024 Telephone [facility] MEDICINE [address] [place] [address] Rosalind Silva DO Recall Appt. 05/19/2024 Travel [...] Mass Index 59.36 07/10/2024 10:05 AM EDT Plan of Treatment Health Maintenance Due Date Last Done Comments Hepatitis B Vaccines (4 of 4 - 4-dose series) 09/12/1999 08/17/1999, 07/18/1999, 06/09/1998 Family Planning (PISQ) 2012 Pap Smear 2018 Depression Screening 12/31/2024 01/01/2024, 01/01/20 24 Diabetes: Hemoglobin A1C 07/07/2025 07/07/2024, 08/30 Alcohol/Substance Use Screening 07/10/2025 07/10/2024 SDOH Screening 07/10/2025 07/10/2024 Tobacco Screening 07/10/2025 07/10/2024 DTaP/Tdap/Td Vaccines (7 - Td or Tdap) 09/10/2028 09/10/2018, 11/16/2009, 07/16/2002, Additional history exists Lipid Panel 07/07/2029 07/07/2024, 09/15/2020 Zoster Vaccines (1 of 2) 10/27/2047 RSV Patients and Patients Aged 60 years or older (1 - 1-dose 75+ series) 2072 HIB Vaccines Completed 1999, 07/30, 07/18/1999, Additional history exists IPV Vaccines Completed 07/16/2002, 07/30, 07/18/1999, Additional history exists Meningococcal Vaccine Completed 09/16/2015 , 09/16/2015, 11/16/2009, Additional history exists Hepatitis A Vaccines Completed 05/08/2018, 09/16/2015, 09/16/2015 HPV Vaccines Completed 08/30/2022, 04/2022, 03/27/2021, Additional history exists COVID-19 Vaccine Completed 01/01/2024, 07/2021, 09/09/2020, Additional history exists Influenza Vaccine Completed 01/01/2024, , 02/20/2022, Additional history exists HIV Screening Completed 07/07/2024, 09/15/2020 Hepatitis C Screening Completed 07/07/2024, 021 Pneumococcal Vaccine: Pediatrics (0 to 5 Years) [...] Procedure Name Priority Date/Time Associated Diagnosis Comments ALBUMIN, RANDOM URINE W/CREATININE Routine 07/07/2024 11:40 AM EDT Essential hypertension CHLAMYDIA/N. GONORRHOEAE RNA, TMA, UROGENITAL Routine 07/07/2024 11:40 AM EDT Essential hypertension IRON AND TOTAL IRON BINDING CAPACITY Routine 07/07/2024 11:26 AM EDT Essential hypertension FERRITIN Routine 07/07/2024 11:26 AM EDT Essential hypertension VITAMIN B12/FOLATE, SERUM PANEL Routine 07/07/2024 11:26 AM EDT Essential hypertension ALPHA FETOPROTEIN, TUMOR MARKER Routine 07/07/2024 11:26 AM EDT Essential hypertension HEPATITIS B CORE AB TOTAL Routine 07/07/2024 11:26 AM EDT Essential hypertension HEPATITIS A ANTIBODY, TOTAL Routine 07/07/2024 11:26 AM EDT Essential hypertension HEPATITIS B SURFACE ANTIBODY, QUALITATIVE Routine 07/07/2024 11:26 AM EDT Essential hypertension RPR (MONITOR) W/REFL TITER Routine 07/07/2024 11:26 AM EDT Essential hypertension HEPATITIS C AB W/REFL TO HCV RNA, QN, PCR Routine 07/07/2024 11:26 AM EDT Essential hypertension HIV 1/2 ANTIGEN/ANTIBODY, FOURTH GENERATION W/RFL Routine 07/07/2024 11:26 AM EDT Essential hypertension HEPATITIS B SURFACE ANTIGEN, EIA Routine 07/07/2024 11:26 AM EDT Essential hypertension CBC Routine 07/07/2024 11:26 AM EDT Essential hypertension BASIC METABOLIC PANEL Routine 07/07/2024 11:26 AM EDT Essential hypertension HEMOGLOBIN A1C Routine 07/07/2024 11:26 AM EDT Essential hypertension HEPATIC FUNCTION PANEL Routine 07/07/2024 11:26 AM EDT Essential hypertension TSH Routine 07/07/2024 11:26 AM EDT Essential hypertension LIPID PANEL, STANDARD Routine 07/07/2024 11:26 AM EDT Essential hypertension VITAMIN D,25-OH,TOTAL,IA Routine 07/07/2024 11:26 AM EDT Essential hypertension T4, FREE Routine 07/07/2024 11:26 AM EDT Essential hypertension from Last 3 Months Results * (ABNORMAL) Albumin, Random Urine W/Creatinine (07/07/2024 11:40 AM EDT) Creatinine, Urine 54.01 mg/dL [facility] Microalbumin Urine 651.0 mg/L H [facility] Microalbum Creatinine Ratio Ur 1,205.3(H ) <30 ug/mg cr [facility] Comment:Albumin/Creatinine R atio Reference Ranges: Normal: < 30 ug/mg creatinine Microalbuminuria: 30 - 300 ug/mg creatinineClinical Albuminuria: > 300 ug/mg creatinine Urine (Urine, Random) 07/07/2024 11:40 AM EDT 07/07/2024 1:12 PM EDT Rosalind Silva DO LAB URINE ORDERABLES Final R esult [facility] [address] [place] [address] [phone] * Chlamydia/N. Gonorrhoeae RNA, TMA, Urogenitial (07/07/2024 11:40 AM EDT) CT PCR NOT DETECTED Not Detect. [facility] Comment:A not detected test result does not exclude the possibilityof infection because test results can be affected byimproper specimen collection, concurrent antibiotic therapy,or the number of organisms in the specimen which may bebelow the sensitivity of the test. As with many diagnostictests, results from the Xpert CT/NG assay should beinterpreted in conjunction with other laboratory andclinical data available to the clinician.Xpert CT/NG performance has not been evaluated in patientsless than 14 years of age. The assay should not be used forthe evaluationof suspected sexual abuse or for other medico-legalindications. Additional testing is recommended in anycircumstance when false positive or false negative resultscould lead to adverse medical, social or psychologicalconsequences. NG PCR NOT DETECTED Not Detect. [facility] Comment:A not detected test result does not exclude the possibilityof infection because test results can be affected byimproper specimen collection, concurrent antibiotic therapy,or the number of organisms in the specimen which may bebelow the sensitivity of the test. As with many diagnostictests, results from the Xpert CT/NG assay should beinterpreted in conjunction with other laboratory andclinical data available to the clinician.Xpert CT/NG performance has not been evaluated in patientsless than 14 years of age. The assay should not be used forthe evaluationof suspected sexual abuse or for other medico-legalindications. Additional testing is recommended in anycircumstance when false positive or false negative resultscould lead to adverse medical, social or psychologicalconsequences. Urine Urethral structure / Unknown 07/07/2024 11:40 AM EDT 07/07/2024 1:12 PM EDT Narrative [facility] - 07/07/2024 3:06 PM EDT Urine us Rosalind Silva DO LAB MICROBIOLOGY - GENERAL O RDERABLES Final Result [facility] [address] [place] [phone] * (ABNORMAL) Vitamin D, 25-Hydroxy, Total, Immunoassay (07/07/2024 11:26 AM EDT) Vitamin D 25-OH Total 21.7(L) >30 ng/mL [facility] Comment: Health Based Reference Values*< 20 ??ng/mL ??Kdeikuubv86-51 ng/mL ??Insufficient> 30 ??ng/mL ??Sufficient*Butch SOTO. N Engl J Med. 2007;357:266-280There is no well-established upper level of normal vitamin Dlevels. Some laboratories use 50 ng/mL as an upper limit ofnormal. However, toxicity is patient-dependent and may occurat any level. Careful correlation with the patient'spresentation is necessary and, if there is concern forvitamin D toxicity, treatment should be consideredirrespective of the serum level.Care must be taken in interpreting Vitamin D results fromdifferent laboratories and methodologies. ??Published datademonstrated that results from patients undergoinghemodialysis may show a negative bias when tested withvarious automated 25-OH vitamin D assays when compared toLC- MS/MS.When testing samples from patients whose predominant form ofVitamin D is Vitamin D2, such as patients receiving VitaminD2 supplementation, results that are subtherapeutic shouldbe confirmed with another method such as LC-MS/MS. Blood Venous blood specimen / Unknown 07/07/2024 11:26 AM EDT 07/07/2024 1:08 PM EDT Rosalind Silva LAB BLOOD ORDERABLES Final R esult Performing Organization Address [facility] Co de Phone Number [facility] [address] [place] [phone] * Vitamin B12 (Cobalamin) and Folate Panel, Serum (07/07/2024 11:26 AM EDT) Vitamin B12 247 200 - 900 pg/mL [facility] Comment:NORMAL 200-900 PG/ML INDETERMINATE 160-199 PG/ML DEFICIENT < 160 PG/ML Folate 11.7 > or = 4.0 ng/mL [facility] Comment:Reference Values:> o r = 4.0 ng/mL< 4.0 ng/mL suggests folate deficiency Methotrexate, aminopterin and folinic acid(leucovorin) are chemotherapeutic agents whose molecularstructures are similar to folate; therefore, the Architectfolate assay cannot be used for patients using these drugs. Blood 07/07/2024 11:2 6 AM EDT 07/07/2024 1:08 PM EDT Rosalind Silva LAB BLOOD ORDERABLES Final R esult Performing Organization Address [facility]/ZIP Co de Phone Number [facility] [address] [place] [phone] * Hepatitis C Antibody with Reflex to HCV, RNA, Quantitative, Real-Time PCR (07/07/2024 11:26 AM EDT) Hepatitis C Antibody Nonreactive Nonreactive [facility] Comment:Antibodies to HCV no t detected; does not exclude early acuteHCV infection. Blood Venous blood specimen / Unknown 07/07/2024 11:26 AM EDT 07/07/2024 1:08 PM EDT Rosalind Silva DO LAB BLOOD ORDERABLES Final R esult Performing Organization Address City/[facility] Co de Phone Number [facility] [address] [place] [phone] * Iron And Total Iron Binding Capacity (07/07/2024 11:26 AM EDT) Iron 75 30 - 160 mcg/dL [facility] Total Iron Binding Capacity 364 228 - 428 mcg/dL [facility] Percent Iron Saturation 21 15 - 50 % [facility] Unsaturated Iron Binding 289 ug/dL [facility] Blood Venous blood specimen / Unknown 07/07/2024 11:26 AM EDT 07/07/2024 1:08 PM EDT Rosalind Silva DO LAB BLOOD ORDERABLES Final R esult Performing Organization Address City/[facility] Co de Phone Number [facility] [address] [place] [phone] * Hepatitis A Antibody, Total (07/07/2024 11:26 AM EDT) Hepatitis A Antibody IgG REACTIVE Nonreactive [facility] Comment:The presence of IgG anti-HAV implies past HAV infection(recent or distant) or vaccination against HAV. Blood Venous blood specimen / Unknown 07/07/2024 11:26 AM EDT 07/07/2024 1:08 PM EDT Rosalind Jurcsak DO LAB BLOOD ORDERABLES Final R esult [facility] [address] [place] [phone] * Alpha-Fetoprotein, Tumor Marker (07/07/2024 11:26 AM EDT) Alpha Fetoprotein 2.5 ng/mL [facility] Comment:Reference Range: <6. 1The use of AFP as a tumor marker in females is not recommended.This test was performed using the Karen Coulterchemiluminescent method. Values obtained fromdifferent assay methods cannot be usedinterchangeably. AFP levels, regardless ofvalue, should not be interpreted as absoluteevidence of the presence or absence of disease.THIS TEST WAS PERFORMED AT:[employer] [place] [phone] DANIELS MD Blood Venous blood specimen / Unknown 07/07/2024 11:26 AM EDT 07/07/2024 1:08 PM EDT us Rosalind Silva DO LAB BLOOD ORDERABLES Final R esult Performing Organization Address [facility]/ZIP Co de Phone Number [facility] [address] [place] [phone] * Hepatitis B surface antigen, EIA (07/07/2024 11:26 AM EDT) Hepatitis B Surface Ag Negative Negative [facility] Blood Venous blood specimen / Unknown 07/07/2024 11:26 AM EDT 07/07/2024 1:08 PM EDT Rosalind Martineznandini DO LAB BLOOD ORDERABLES Final R esult Performing Organization Address City/[facility]/ZIP Co de Phone Number [facility] [address] [place] [phone] * Hepatitis B Core Antibody, Total (07/07/2024 11:26 AM EDT) Hepatitis B Core Antibody Nonreactive Nonreactive [facility] Blood Venous blood specimen / Unknown 07/07/2024 11:26 AM EDT 07/07/2024 1:08 PM EDT Rosalind Silva DO LAB BLOOD ORDERABLES Final R esult Performing Organization Address City/[facility]/ZIP Co de Phone Number [facility] [address] [place] [phone] * (ABNORMAL) RPR (Monitor) with Reflex to??Titer (07/07/2024 11:26 AM EDT) RPR (Monitor) w/Refl Titer REACTIVE( A) NON-REACT AQUILES [facility] Comment:The RPR is a non-linh ponemal-specific test; therefore,a treponemal- specific confirmatory test should beperformed unless prior syphilis infection has beendocumented for this patient.THIS TEST WAS PERFORMED AT:[employer] [address] [phone] DANIELS MD Rapid Plasma Reagin Ab Titer 1:2(A) [facility] Comment:THIS TEST WAS PERFOR MED AT:[employer] [address] [id number] DANIELS MD Blood Venous blood specimen / Unknown 07/07/2024 11:26 AM EDT 07/07/2024 1:08 PM EDT Rosalind Silva DO LAB BLOOD ORDERABLES Final R esult Performing Organization Address City/[facility]/ZIP Co de Phone Number [facility] [address] [place] [phone] * HIV-1/2 Antigen and Antibodies, Fourth Generation, with Reflexes (07/07/2024 11:26 AM EDT) HIV AB/AG Nonreactive Nonreactive [facility] Comment:HIV-1 p24 Ag and/or HIV-1/HIV-2 Ab not detected.A test result that is nonreactive does not exclude thepossibility of exposure to or infection with HIV-1 and/orHIV-2. Nonreactive results in this assay for individualswith prior exposure to HIV-1 and/or HIV-2 may be due toantigen and antibody levels that are below the limit ofdetection of this assay.The InterhypniQoiza HIV Ag/Ab Combo assay result andsupplemental assay results should be interpreted inconjunction with the patient's clinical presentation,history and other laboratory results. If the results areinconsistent with clinical evidence, additional testing issuggested to confirm the result. Blood Venous blood specimen / Unknown 07/07/2024 11:26 AM EDT 07/07/2024 1:08 PM EDT Rosalind Silva LAB BLOOD ORDERABLES Final R esult Performing Organization Address City/[facility]/ZIP Co de Phone Number [facility] [address] [place] [phone] * Hepatitis B Surface Antibody, Qualitative (07/07/2024 11:26 AM EDT) Pathologist [facility] [place] ~Hepatitis B Surface Antibody REACTIVE Nonreactive [facility] Comment:REACTIVE: > 11.99 mI U/mL Blood Venous blood specimen / Unknown 07/07/2024 11:26 AM EDT 07/07/2024 1:08 PM EDT Rosalind Silva LAB BLOOD ORDERABLES Final R esult Performing Organization Address City/[facility]/ZIP Co de Phone Number [facility] [address] [place] [phone] * (ABNORMAL) CBC (07/07/2024 11:26 AM EDT) Pathologist [facility] [place] White Blood Count 3.3(L) 4.8 - 10.8 X10*3/uL [facility] Red Blood Count 5.09 4.20 - 5.50 X10*6/uL [facility] Hemoglobin 13.7 12.0 - 16.0 g/dl [facility] Hematocrit 41.4 37.0 - 47.0 % [facility] Mean Corpuscular Volume 81.3 80.0 - 98.0 fL [facility] Mean Corpuscular Hemoglobin 26.9(L) 27.0 - 33.0 pg [facility] Mean Corpuscular HGB Conc 33.1 31.0 - 35.0 g/dl [facility] Red Cell Distribution Width 15.9 11.0 - 16.0 % [facility] Platelet Count 327 160 - 400 X10*3/uL [facility] Mean Platelet Volume 10.3 9.4 - 12.3 fL [facility] NRBC Pct Auto 0.0 0.0 - 0.2 /100WBC [facility] NRBC Abs Auto 0.000 0.0 - 0.012 X10*3/uL [facility] Blood Venous blood specimen / Unknown 07/07/2024 11:26 AM EDT 07/07/2024 1:08 PM EDT Rosalind Silva [employer] LAB BLOOD ORDERABLES Final R esult Performing Organization Address City/[facility] Co de Phone Number [facility] [address] [place] [phone] * (ABNORMAL) TSH (07/07/2024 11:26 AM EDT) Thyroid Stimulating Hormone 8.12(H) 0.32 - 4.0 uIU/mL [facility] Comment:Note: A sustained TS H level above 2.5 uIU/mL may warrant further investigation. TSH 3rd Generation (gDine) Blood Venous blood specimen / Unknown 07/07/2024 11:26 AM EDT 07/07/2024 1:08 PM EDT Rosalind Silva [employer] LAB BLOOD ORDERABLES Final R esult [facility] [address] [place] [phone] * T4, Free (07/07/2024 11:26 AM EDT) Free T4 (Free Thyroxine) 1.09 0.71 - 1.85 ng/dL [facility] Blood Venous blood specimen / Unknown 07/07/2024 11:26 AM EDT 07/07/2024 1:08 PM EDT Rosalind Silva DO LAB BLOOD ORDERABLES Final R esult Performing Organization Address [facility] de Phone Number [facility] [address] [place] [phone] * Hemoglobin A1c (07/07/2024 11:26 AM EDT) Hemoglobin A1c 5.8 <6.0 % [facility] Comment:Hemoglobin A1C Refer ence Range Adults: 4.8 - 6.0 % Non diabetic: < 6.0 % Goal: < 7.0 %Additional Action Suggested: > 8.0 %Note: Hemoglobin A1c results are invalid for patients with abnormal amounts of HbF. Blood transfusions may impact the HbA1c concentration in the patient sample. Estimated Average Glucose 120 mg/dL [facility] Comment:eAG = Estimated ave rage glucose which is %A1C expressed asaverage glucose, using the formula of the I5V-PaqhryjNuoljba Glucose study (ADAG), Diabetes Care, Vol.31,#8,Oct. 2007 Blood Venous blood specimen / Unknown 07/07/2024 11:26 AM EDT 07/07/2024 1:08 PM EDT Rosalind Silva DO LAB BLOOD ORDERABLES Final R esult Performing Organization Address [facility] Co de Phone Number [facility] [address] [place] [phone] * Ferritin (07/07/2024 11:26 AM EDT) Ferritin 20 10 - 122 ng/mL [facility] Blood Venous blood specimen / Unknown 07/07/2024 11:26 AM EDT 07/07/2024 1:08 PM EDT Rosalind Silva DO LAB BLOOD ORDERABLES Final R esult Performing Organization Address City/[facility]/ZIP Co de Phone Number [facility] [address] [place] [phone] * (ABNORMAL) Hepatic Function Panel (07/07/2024 11:26 AM EDT) Pathologist [facility] [place] Bilirubin, Total 0.6 0.0 - 1.0 mg/dL [facility] Bilirubin, Direct 0.2 0.0 - 0.5 mg/dL [facility] Aspartate Amino Transferase 31 5 - 31 U/L [facility] Alanine Aminotransferase 28 0 - 31 U/L [facility] Total Protein 8.2(H) 6.5 - 8.0 g/dL [facility] Albumin Level 4.3 3.5 - 5.0 g/dL [facility] Alkaline Phosphatase 94 39 - 117 U/L [facility] Blood Venous blood specimen / Unknown 07/07/2024 11:26 AM EDT 07/07/2024 1:08 PM EDT Rosalind Silva DO LAB BLOOD ORDERABLES Final R esult Performing Organization Address City/[facility]/ZIP Co de Phone Number [facility] [address] [place] [address] [phone] * (ABNORMAL) Lipid Panel, Standard (07/07/2024 11:26 AM EDT) Triglycerides 122 <150 mg/dL [facility] Comment:Desirable Triglyceri de: less than 150 mg/dLBorderline High Triglyceride 150-199 mg/dLHigh Triglyceride: 200-499 mg/dLVery High Triglyceride: greater than or equal to 5OO mg/dL Cholesterol 178 <200 mg/dL [facility] Comment:Desirable Cholestero l: less than 200 mg/dLBorderline High Cholesterol: 200-239 mg/dLHigh Cholesterol: greater than 239 mg/dL LDL Cholesterol Calculated 124(H) <100 mg/dL [facility] Comment:Desirable LDL: less than 100 mg/dLNear Optimal/Above Optimal LDL: 110- 129 mg/dLBorderline High LDL: 130-159 mg/dLHigh LDL: 160-189 mg/dLVery High LDL: greater than or equal to 190 mg/dL HDL Cholesterol 30(L) >40 mg/dL [facility] Comment:Desirable HDL: great er than 40 mg/dL Note: This HDL assay may give artificially low results in patients with liver disease. Blood Venous blood specimen / Unknown 07/07/2024 11:26 AM EDT 07/07/2024 1:08 PM EDT us Rosalind Silva DO LAB BLOOD ORDERABLES Final R esult [facility] [address], [place] [phone] * (ABNORMAL) Basic Metabolic Panel (07/07/2024 11:26 AM EDT) Sodium 138 135 - 145 mmol/L [facility] Potassium 3.9 3.3 - 5.1 mmol/L [facility] Chloride 104 96 - 108 mmol/L [facility] Carbon Dioxide 25 22 - 29 mmol/L [facility] Anion Gap 13 12 - 20 [facility] Urea Nitrogen (BUN) 17(H) 9 - 16 mg/dL [facility] Creatinine, Serum 0.66 0.5 - 1.4 mg/dL [facility] Estimated Glomerular Filt Rate >60 [facility] Comment:Chronic Kidney Disea se: Estimated GFR < 60 mL/min/[id number] Kidney Disease: Estimated GFR < 15 mL/min/1.73m2 Glucose 95 60 - 115 mg/dL [facility] Calcium 9.5 8.4 - 10.2 mg/dL [facility] Blood Venous blood specimen / Unknown 07/07/2024 11:26 AM EDT 07/07/2024 1:08 PM EDT us Rosalind Silva DO LAB BLOOD ORDERABLES Final R esult [facility] [address] [place] [address] [phone] from Last 3 Months Insurance [employer] Care Teams Guitar Instructor Relationship Specialty Start Date End Date Rosalind Silva DO [address] [place] [phone] PCP - General Family Medicine 10/27/18
[2024-07-14 13:27] LABS: MANUAL DIFF FLAG NO
[2024-07-14 13:42] LABS: Basophils Percent Auto 0.6 % (0-2); Eosinophils Absolute Auto 0.1 X10*3/uL (0.0-0.4); Eosinophils Percent Auto 4.4 % (0-4); Hematocrit 43.5 % (37.0-47.0); Hemoglobin 13.7 g/dl (12.0-16.0); Imm Gran Abs Auto 0.01 X10*3/uL (0.00-0.03); Imm Gran Pct Auto 0.3 % (0.0-0.4); Lymphocytes Absolute Auto 0.8 X10*3/uL (1.2-4.9); Lymphocytes Percent Auto 25.9 % (20-40); Mean Corpuscular HGB Conc 31.5 g/dl (31.0-35.0); Mean Corpuscular Hemoglobin 26.6 pg (27.0-33.0); Mean Corpuscular Volume 84.5 fL (80.0-98.0); Mean Platelet Volume 10.3 fL (9.4-12.3); Monocytes Absolute Auto 0.3 X10*3/uL (0.1-1.2); Monocytes Percent Auto 7.9 % (2-11); Neutrophils Absolute Auto 1.9 x10*3/uL (2.0-8.3); Neutrophils Percent Auto 60.9 % (45-73); Platelet Count 295 X10*3/uL (160-400); Red Blood Count 5.15 X10*6/uL (4.20-5.50); Red Cell Distribution Width 16.2 % (11.0-16.0); White Blood Count 3.2 X10*3/uL (4.8-10.8)
[2024-07-14 13:55] LABS: Iron 54 mcg/dL (30-160); Percent Iron Saturation 16 % (15-50); Total Iron Binding Capacity 343 mcg/dL (228-428); Unsaturated Iron Binding 289 ug/dL
[2024-07-14 14:12] LABS: Ferritin 19 ng/mL (10-122)
== END 2024-07-14 10:42 | disposition home or self-care (01) ==
LOC: HO.HHCL 10:41
PROVIDERS: Visit Provider Physician Assistant Medical
DX: M25.50 Pain in unspecified joint (principal); Z83.2 Family history of diseases of the blood and blood-forming organs and certain disorders involving the immune mechanism
CPT/HCPCS: 36415; 73080; 73130; 73564; 82728; 83540; 85025

== ENCOUNTER → 2024-07-14 12:05 | Outpatient (BNV) | payer MEDICAID, SELFPAY | PROVIDERS: Visit Provider Radiology Diagnostic Radiology | DX: M25.561 Pain in right knee (principal); M25.562 Pain in left knee; M25.522 Pain in left elbow; M25.521 Pain in right elbow; M19.041 Primary osteoarthritis, right hand; M19.042 Primary osteoarthritis, left hand; Z82.69 Family history of other diseases of the musculoskeletal system and connective tissue; Z82.61 Family history of arthritis | CPT/HCPCS: 73080; 73130; 73564 ==

== ENCOUNTER 2025-02-09 10:55 | Outpatient (REF) | payer OTHER, SELFPAY ==
--- OUTSIDE RECORDS SUMMARY | 2025-02-09 13:02 | XMS_ITS ---
Author Organization [employer] Address [address] [place] [address] 7 [place] [address] Care Team Providers Care Habilitative Interventionist Name Role Phone Rosalind Silva DO Primary Care Provider Heber Rodriguez RN Unavailable [phone] Swathi Anderson Unavailable [facility] Status:Enrolled (Active) Start date:09/25/2024 Enrollment date:09/25/2024 Enrollment reason:ADT Feed Overview ED- Pt went to [facility] ED on 09/24/24. Case Team Name Relationship Phone Swathi Anderson(Responsible Staff) Continued Care and Services Coordination
--- OUTSIDE RECORDS SUMMARY | 2025-02-09 13:02 | XMS_ITS | Clinical Summary ---
Author Organization [employer] Address [address] [facility] [address], [place] [address] Care Team Providers Care Event Marketing Coordinator Name Role Phone Shira Rosalind Primary Care Provider Heber Rodriguez RN Unavailable [phone] Swathi Anderson Unavailable Allergies Active Allergy Reactions Criticality Noted Date Comments Ferumoxytol 08/07/2023 Sulfa Antibiotics Rash Low 12/09/2017 Erythroderma, fever, and neutropenia temporally related to TMP/SMX given for skin infection Sulfamethoxazole 09/19/2011 Sulfamethoxazole-Trimethoprim Rash Low 2022 Trimethoprim 05/28/2018 Medications cholecalciferol (Vitamin D-3) 50 MCG (1999 UT) capsule TAKE 1 CAPSULE BY MOUTH EVERY DAY 90 capsule 3 04/29/19 24 Active Additional Information Patient not taking.Reported on 10/20/2024 EpiPen 2-Mina 0.3 MG/0.3ML injection syringe Inject 0.3 mg into the muscle. 06/17/19 24 Active omeprazole (PriLOSEC) [address] capsule Take 1 capsule (20 mg) by mouth before breakfast. Do not crush or chew. 90 capsule 3 11/27/19 24 Active Additional Information Patient not taking.Reported on 10/20/2024 norethindrone (Elissa) 0.35 MG tablet Take 0.35 mg by mouth. 12/17/19 24 Active levothyroxine (Synthroid, Levoxyl) 175 MCG tablet TAKE 1 TABLET (175 MCG) BY MOUTH ONCE PER DAY. 90 tablet 3 12/02/19 25 Active metFORMIN XR (Glucophage-XR) 500 MG 24 hr tablet TAKE 1 TABLET BY MOUTH EVERY DAY WITH EVENING MEAL 90 tablet 01/12/20 25 Active fluticasone (Flonase) 50 MCG/ACT nasal sprayIndication s:Cough, unspecified type,Viral illness SHAKE GENTLY & INSTILL 1 SPRAY INTO EACH NOSTRIL 2 TIMES DAILY 48 mL 02/06/20 25 Active lisinopril 5 MG tablet TAKE 1 TABLET BY MOUTH ONCE PER DAY. 90 tablet 3 02/10/20 25 Active hydroCHLOROthia zide (HYDRODiuril) 25 MG tablet TAKE 1 TABLET BY MOUTH EVERY DAY 90 tablet 3 02/10/20 25 Active Tirzepatide-Dilshad ght Management (Zepbound) 2.5 MG/0.5ML solution auto-injectorIn dications:Morbi d obesity with BMI of 60.0-69.9, adult (CMS/HCC) ([facility]) Inject 0.5 mL (2.5 mg) under the skin 1 (one) time per week. 2 mL 3 02/09/20 25 Active lisinopril 5 MG tablet Take 1 tablet (5 mg) by mouth Once per day. 90 tablet 3 11/27/19 24 025 Discontinued metFORMIN XR (Glucophage-XR) 500 MG 24 hr tablet TAKE 1 TABLET BY MOUTH EVERY DAY EVENING MEAL 90 tablet 3 11/27/19 24 025 Discontinued hydroCHLOROthia zide (HYDRODiuril) 25 MG tablet Take 1 tablet (25 mg) by mouth Once per day. 90 tablet 3 11/27/19 24 025 Discontinued fluticasone (Flonase) 50 MCG/ACT nasal sprayIndication s:Cough, unspecified type,Viral illness Administer 1 spray into each nostril 2 times daily. Shake gently. Before first use, prime pump. After use, clean tip and replace cap. 16 g 1 01/07/20 25 025 Discontinued Active Problems Problem Noted Date Diagnosed Date PCOS (polycystic ovarian syndrome) 08/07/2023 Assessment & Plan (08/07/2023 1:28 PM EDT): -cont metformin daily -cont OCPs as per [employer] -f/u with OB-[employer] as scheduled History of pulmonary embolism 08/07/2023 [...] results -she agrees to schedule f/u with [employer] Healthcare maintenance 08/07/2023 Assessment & Plan (08/07/2023 [...] schedule optho eval -review next visit* BMI 60.0-69.9, adult ([facility]) 11/07/2017 Hidradenitis suppurativa 05/06/2014 Assessment & Plan [...] Encounters Date Type Department Care Team Description 02/08/2025 Refill [facility] MEDICINE [address] [place] [phone] Rosalind Silva DO 02/05/2025 Refill [facility] WALK-IN CENTER [address] [place], [place] [phone] Candy Gruber NP Cough, unspecified type; Viral illness 01/27/2025 Patient Outreach [facility] CHC MED & PEDS [address] [place], [place] [phone] Rosalind Silva DO Care Management (C3CM- F/U call # 2 (2nd attempt)) 01/19/2025 9:45 AM EDT Office Visit [facility] MEDICINE [address] [place] [address] [phone] Rosalind Silva DO Essential hypertension (Primary Dx); Prediabetes; Hypothyroidism, unspecified type; Fatty liver; Cyst of left ovary; History of pulmonary embolism; Abnormal uterine bleeding; Iron deficiency anemia, unspecified iron deficiency anemia type; Abnormal EKG; Hidradenitis suppurativa; Morbid obesity with BMI of 60.0-69.9, adult (CMS/HCC) (HCC); Healthcare maintenance; Dietary counseling; Exercise counseling; Encounter for immunization; Encounter for vaccination 01/19/2025 Travel 01/12/2025 Patient Outreach [facility] PEDS [address] [place] [address] Rosalind Silva DO Pre-visit Planning (SDOH unable to reach [facility] ) 01/11/2025 Telephone [facility] MEDICINE [address] [place] [phone] Rosalind Silva DO Chart Prep 01/10/2025 Refill [facility] MEDICINE [address] [place] [phone] Rosalind Silva DO 01/06/2025 6:20 PM EDT Office Visit [facility] WALK-IN CENTER [address] [place] [phone] Candy Gruber NP Cough, unspecified type (Primary Dx); Laryngitis, acute; Viral illness 01/06/2025 Travel 01/01/2025 Telephone [facility] MEDICINE [address] [place] [phone] Rosalind Silva DO December12/07/2024 Patient Outreach [facility] MEDICINE [address] [place] [phone] Rosalind Silva DO Care Management (C3CM- F/U call # 2/[facility]) 12/04/2024 Patient Outreach [facility] MEDICINE [address] [place] [phone] Rosalind Silva DO 11/28/2024 Refill [facility] MEDICINE [address] [place] [phone] Rosalind Silva DO from Last 3 Months Immunizations Immunization Administration Dates Next Due DTaP 07/16/2002, 0,07/18/1999,06/09 HPV 9-Valent 08/30/2022,03/27/2021,09/16/2015 HPV, Quadrivalent 08/30/2022,03/27/2021,09/16/19 16 Hep A, Adult 05/08/2018 Hep A, Unspecified 09/16/2015 Hep A, ped/adol, 2 dose 09/16/2015 Hep B, Adolescent or Pediatric 08/17/1999,1999,06/09/1998 Hib (HbOC) 1999, 0,07/18/1999,06/09 IPV 07/16/2002, 0,07/18/1999,06/09 Influenza injectable quadriv alent preservative free 02/20/2022,03/27/2021,04/19/2020,05/06 Influenza, IIV3, injectable 02/20/2022,1 05/28/2020,04/19/2020,05/06,03/02/2008,01/17/2007 Influenza, seasonal, injecta ble, preservative free 01/19/2025,01/01/2024 MMR 1999,07/18/1999 Meningococcal ACWY, unspecified 09/16/2015,11/16 Meningococcal MCV4P ACYW-135 09/16/2015,11/17/19 10 Pfizer Covid-19 Vaccine 12+ 01/19/2025, 4 Tdap 09/10/2018,11/16/2009 Varicella 11/16/2009,1999 Social History Tobacco Use Types Packs/Day Years Used Date Smoking Tobacco: Never Passive Smoke Exposure: Never Smokeless Tobacco: Never Tobacco Cessation:Counseling Given: Not Answered Alcohol Use Standard Drinks/Week Comments Never 0 (1 standard drink = 0.6 oz pur e alcohol) Depression Answer Date Recorded Patient Health Questionnaire-9 Score 10 01/19/2025 Patient Health Questionnaire-9 Score 10 01/19/2025 Last PHQ-9: Questionnaire Data Not on file [...] before you got money to buy more: Sometimes True 2024 Within the past 12 months,th e food you bought just didn't last and you didn't have enough money to get more: Sometimes True 09/25/2024 Transportation Answer Date Recorded In the past 12 months, has l ack of transportation kept you from medical appts, meetings, work or from getting things needed for daily living? No 07/10/2024 Intimate Partner Violence Answer Date R ecorded Within the last year, have y ou been afraid of your partner or ex-partner? 2 10/20/2024 Within the last year, have y ou been humiliated or emotionally abused in other ways by your partner or ex-partner? 2 Within the last year, have y ou been kicked, hit, slapped, or otherwise physically hurt by your partner or ex-partner? 2 10/20/2024 Within the last year, have y ou been raped or forced to have any kind of sexual activity by your partner or ex-partner? 2 10/20/2024 Utilities Answer Date Recorded In the past 12 months, has t he electric, gas, oil or water company threatened to shut off services in your home? No 07/10/2024 Depression Answer Date Recorded Patient Health Questionnaire-2 Score 2 01/19/2025 Internet Access Answer Date Recorded Internet Access [...] Sign Reading Time Taken Comments Blood Pressure 104/76 01/19/2025 9:41 AM EDT Pulse 88 01/19/2025 9:41 AM EDT Temperature 36.3 C (97.4 F) 01/19/2025 9:41 AM EDT Respiratory Rate 20 01/19/2025 9:41 AM EDT Oxygen Saturation 97% 01/06/2025 7:04 PM EDT Inhaled Oxygen Concentration - - Weight 130 kg (287 lb 4 oz) 01/19/2025 9:41 AM E DT Height 147.3 cm (4' 10 ) 01/19/2025 9:41 AM EDT Body Mass Index 60.04 01/19/2025 9:41 AM EDT Plan of Treatment Health Maintenance Due Date Last Done Comments Hepatitis B Vaccines (4 of 4 - 4-dose series) 09/12/1999 08/17/1999, 07/18/1999, 06/09/1998 Family Planning (PISQ) 2012 Pap Smear 2018 Diabetes: Hemoglobin A1C 07/07/2025 07/07/2024, 08/30 Alcohol/Substance Use Screening 07/10/2025 07/10/2024 Disability Screening 07/10/2025 07/10/2024 Depression Monitoring 07/20/2025 01/19/2025, 025 SDOH Screening 09/25/2025 09/25/2024 Tobacco Screening 01/19/2026 01/19/2025 DTaP/Tdap/Td Vaccines (7 - Td or Tdap) [...] 05/08/2018, 09/16/2015, 09/16/2015 HPV Vaccines Completed 08/30/2022, 06/04/2022, 03/27/2021, Additional history exists HIV Screening Completed 07/07/2024, 09/15/2020 Hepatitis C Screening Completed 07/07/2024, 021 COVID-19 Vaccine Completed 01/19/2025, 05/2023, 04/05/2021, Additional history exists Influenza Vaccine Completed 01/19/2025, , 02/20/2022, Additional history exists Meningococcal B Vaccine Aged Out No l onger eligible based on patient's age to complete this topic Pneumococcal Vaccine: Pediatrics (0 to 5 Years) and At-Risk Patients (6 to 49) Years Aged Out No longer eligible based on patient's age to complete this topic RSV under 20 months Aged Out No longe r eligible based on patient's age to complete this topic Rotavirus Vaccines Aged Out No longer eligible based on patient's age to complete this topic Procedures Procedure Name Priority Date/Time Associated Diagnosis Comments POCT INFLUENZA B (ID NOW RAPID MOLECULAR) Routine 01/06/2025 7:15 PM EDT Cough, unspecified type POCT INFLUENZA A (ID NOW RAPID MOLECULAR) Routine 01/06/2025 7:14 PM EDT Cough, unspecified type POC JEFFRIES ID NOW STREP A Routine 01/06/2025 7:10 PM EDT Cough, unspecified type POCT RAPID COVID ANTIGEN Routine 01/06/2025 7:08 PM EDT Cough, unspecified type HEPATITIS C AB W/REFL TO HCV RNA, QN, PCR Routine 07/07/2024 11:26 AM EDT Essential hypertension HIV 1/2 ANTIGEN/ANTIBODY, FOURTH GENERATION W/RFL Routine 07/07/2024 11:26 AM EDT Essential hypertension HEMOGLOBIN A1C Routine 07/07/2024 11:26 AM EDT Essential hypertension LIPID PANEL, STANDARD Routine 07/07/2024 11:26 AM EDT Essential hypertension from Last 3 Months or Most Recently Relevant to Health Maintenance Results * POCT Rapid Influenza B JEFFRIES ID NOW (01/06/2025 7:15 PM EDT) Influenza B Negative Negative, Indeterminate [facility] QC Media Lot # [id number] [facility] Lot# Expiration Date [facility] Swab 01/06/2025 7:[address] [facility] AVIONICS INTEGRATION ENGINEER POINT OF CARE TEST ENTER/EDIT O RDERABLES Final Result Performing Organization Address [facility]/ZIP Co de Phone Number [facility] [address] [place] [phone] * POCT Rapid Influenza A JEFFRIES ID NOW (01/06/2025 7:14 PM EDT) Pathologist [facility] Influenza A Negative Negative, Indeterminate [facility] QC Media Lot # [id number] [facility] Lot# Expiration Date [facility] Swab 01/06/2025 7:[address] [facility] AVION[employer] INTEGRATION ENGINEER POINT OF CARE TEST ENTER/EDIT O RDERABLES Final Result Performing Organization Address [facility] Co de Phone Number [facility] [address] [place] [phone] * POCT Rapid Strep A JEFFRIES ID NOW (01/06/2025 7:10 PM EDT) [facility] Rapid Strep A Screen Negative Negative, None Detected QC Media Lot # [id number] Lot# Expiration Date Swab 01/06/2025 7:[address] [facility] AVION[employer] INTEGRATION ENGINEER POINT OF CARE TEST ENTER/EDIT O RDERABLES Final Result * POCT Rapid Covid-19 BinaxNOW (01/06/2025 7:08 PM EDT) [facility] Rapid COVID Ag Negative QC Media Lot # [id number] Lot# Expiration Date [id number] Swab 01/06/2025 7:08 PM EDT Candy Gruber NP POINT OF CARE TEST ENTER/EDIT O RDERABLES Final Result * Hepatitis C Antibody with Reflex to HCV, RNA, Quantitative, Real-Time PCR (07/07/2024 11:26 AM EDT) Hepatitis C Antibody Nonreactive Nonreactive [facility] Comment:Antibodies to HCV no t detected; does not exclude early acuteHCV infection. Blood Venous blood specimen / Unknown 07/07/2024 11:26 AM EDT 07/07/2024 1:08 PM EDT Rosalind Silva DO LAB BLOOD ORDERABLES Final R esult [facility] [address] [place] [phone] * HIV-1/2 Antigen and Antibodies, Fourth Generation, with Reflexes (07/07/2024 11:26 AM EDT) Pathologist [facility] HIV AB/AG Nonreactive Nonreactive [facility] Comment:HIV-1 p24 Ag and/or HIV-1/HIV-2 Ab not detected.A test result that is nonreactive does not exclude thepossibility of exposure to or infection with HIV-1 and/orHIV-2. Nonreactive results in this assay for individualswith prior exposure to HIV-1 and/or HIV-2 may be due toantigen and antibody levels that are below the limit ofdetection of this assay.The [employer] HIV Ag/Ab Combo assay result andsupplemental assay results should be interpreted inconjunction with the patient's clinical presentation,history and other laboratory results. If the results areinconsistent with clinical evidence, additional testing issuggested to confirm the result. Blood Venous blood specimen / Unknown 07/07/2024 11:26 AM EDT 07/07/2024 1:08 PM EDT Rosalind Shira DO LAB BLOOD ORDERABLES Final R esult Performing Organization Address City/[facility]/ZIP Co de Phone Number [facility] [address] [place] [phone] * Hemoglobin A1c (07/07/2024 11:26 AM EDT) Hemoglobin A1c 5.8 <6.0 % [facility] Comment:Hemoglobin A1C Refer ence Range Adults: 4.8 - 6.0 % Non diabetic: < 6.0 % Goal: < 7.0 %Additional Action Suggested: > 8.0 %Note: Hemoglobin A1c results are invalid for patients with abnormal amounts of HbF. Blood transfusions may impact the HbA1c concentration in the patient sample. Estimated Average Glucose 120 mg/dL [facility] Comment:eAG = Estimated ave rage glucose which is %A1C expressed asaverage glucose, using the formula of the W6K-YodathcYbazeoe Glucose study (ADAG), Diabetes Care, Vol.31,#8,Oct. 2007 Blood Venous blood specimen / Unknown 07/07/2024 11:26 AM EDT 07/07/2024 1:08 PM EDT Rosalind Shira DO LAB BLOOD ORDERABLES Final R esult Performing Organization Address City/[facility]/ZIP Co de Phone Number [facility] [address] [place] [phone] * (ABNORMAL) Lipid Panel, Standard (07/07/2024 11:26 AM EDT) Triglycerides 122 <150 mg/dL [facility] Comment:Desirable Triglyceri de: less than 150 mg/dLBorderline High Triglyceride 150-199 mg/dLHigh Triglyceride: 200-499 mg/dLVery High Triglyceride: greater than or equal to 5OO mg/dL Cholesterol 178 <200 mg/dL [facility] Comment:Desirable Cholestero l: less than 200 mg/dLBorderline High Cholesterol: 200-239 mg/dLHigh Cholesterol: greater than 239 mg/dL LDL Cholesterol Calculated 124(H) <100 mg/dL [facility] Comment:Desirable LDL: less than 100 mg/dLNear Optimal/Above Optimal LDL: 110- 129 mg/dLBorderline High LDL: 130-159 mg/dLHigh LDL: 160-189 mg/dLVery High LDL: greater than or equal to 190 mg/dL HDL Cholesterol 30(L) >40 mg/dL [facility] Comment:Desirable HDL: great er than 40 mg/dL Note: This HDL assay may give artificially low results in patients with liver disease. Blood Venous blood specimen / Unknown 07/07/2024 11:26 AM EDT 07/07/2024 1:08 PM EDT Rosalind Silva DO LAB BLOOD ORDERABLES Final R esult [facility] [address] [place] [address] [phone] from Last 3 Months or Most Recently Relevant to Health Maintenance Insurance [facility] Care Teams Event Marketing Coordinator Relationship Specialty Start Date End Date Rosalind Silva DO [address] [place] [phone] PCP - General Family Medicine 10/27/18 Heber Rodriguez, RN [address] [place] [phone] Registered Nurse Family Medicine 09/25/24 Swathi Anderson 09/25/24
--- OUTSIDE RECORDS SUMMARY | 2025-02-09 13:02 | XMS_ITS | Clinical Summary ---
Author Organization [facility] Address [address] [facility] [address] [place] [phone] Phone Care Team Providers Care Engine Test Cell Technician Name Role Phone Rosalind Silva DO Primary Care Provider Pita Whiteside PA-C Unavailable [phone] Allergies Active Allergy Reactions Criticality Noted Date Comments Sulfamethoxazole-Trimethoprim Rash,Fever High 2024 Medications levothyroxine (SYNTHROID, LEVOTHROID) 175 MCG tablet Take 175 mcg by mouth every morning. Active hydroCHLOROthia zide 25 MG tablet Take 25 mg by mouth daily. Active lisinopril (PRINIVIL,ZESTR IL) 5 MG tablet Take 5 mg by mouth daily. Active metFORMIN (GLUCOPHAGE) 500 MG tablet Take 500 mg by mouth daily. Pt takes it with dinner Active norethindrone (MICRONOR) 0.35 mg tablet Take 1 tablet by mouth daily. Active iron, ferronyl,-vitam in C (VITRON-C) 65 mg iron- 125 mg TbEC Take 1 tablet by mouth as directed. Take 1 Tablet by mouth on Mondays, Wednesdays, and Fridays 48 tablet 1 07/29/2024 Active Active Problems Patient Care Coordination No te Formatting of this note migh t be different from the original. Height 151 cm taken by RB on 07/02/24 No additional problems on file Immunizations Immunization Administration Dates Next Due DTaP 07/16/2002, 0,07/18/1999,06/09 HPV9 08/30/2022,03/27/2021,09/16/2015 Hepatitis A, Adult 05/08/2018 Hepatitis A, ped/adol, 2 dose 09/16/2015 Hepatitis B 08/17/1999,07/18/1999,06/09/1998 Hib,HbOC 1999, 0,07/18/1999,06/09 INFLUENZA, SPLIT VIRUS, TRIVALENT PF 01/01/2024 INFLUENZA, SPLIT VIRUS, TRIV ALENT W/ PRESERVATIVE IM 03/02/2008,01/17/2007 IPV 07/16/2002, 0,07/18/1999,06/09 Influenza Quadrivalent Prese rvative Free IM 02/20/2022,03/27/2021,04/19/2020,05/06 MMR 1999,07/18/1999 Meningococcal MCV4P 09/16/2015,11/16/2009 Tdap 09/10/2018,11/16/2009 Varicella 11/16/2009,1999 Social History Tobacco Use Types Packs/Day Years Used Date Smoking Tobacco: Never Smokeless Tobacco: Never Tobacco Cessation:Counseling Given: Not Answered Alcohol Use Standard Drinks/Week Comments Never 0 (1 standard drink = 0.6 oz pur e alcohol) Education Answer Date Recorded Are you interested in more education? Not on faustino e 04/23/2024 Are you concerned about learning? Not on file 04/23/2024 No 04/23/2024 No 04/23/2024 Digital Access Answer Date Recorded No 04/23/2024 No 04/23/2024 Reliable internet access at home? Not on file 04/23/2024 Device with a working camera? Not on file Comments Unknown Sex and Gender Information Value Date Recorded Sex Assigned at Female 06/29/2024 1:40 PM EDT Legal Sex Female 2:51 PM EDT Gender Identity Female 06/29/2024 1:40 PM EDT Sexual Orientation Straight 06/29/2024 1: 40 PM EDT Last Filed Vital Signs Vital Sign Reading Time Taken Comments Blood Pressure 152/106 07/02/2024 8:46 AM EDT Pulse 159 07/02/2024 8:35 AM EDT Temperature 36.5 C (97.7 F) 07/02/2024 8:35 AM EDT Respiratory Rate - - Oxygen Saturation 95% 07/02/2024 8:35 AM EDT Inhaled Oxygen Concentration - - Weight 128.8 kg (283 lb 14.4 oz) 07/02/2024 8:35 AM EDT Height 151 cm (4' 11.45 ) 07/02/2024 8:35 AM EDT Body Mass Index 56.48 07/02/2024 8:35 AM EDT Plan of Treatment Health Maintenance Due Date Last Done Comments TSH LEVEL 1997 DEPRESSION SCREENING 2009 HEPATITIS C SCREENING 10/27/2015 HIV ONE-TIME SCREENING (18-65 YEARS) 10/27/2015 PAP SMEAR 2018 INFLUENZA VACCINE (#1) 2024 , 02/20/2022, 03/27/2021, Additional history exists COVID-19 VACCINE (2024- season) 2024 01/01/2024, 04/05/2021, 09/09/2020, Additional history exists CREATININE LEVEL 07/02/2025 07/02/2024 POTASSIUM LEVEL 07/02/2025 07/02/2024 Adult Td,Tdap Booster 09/10/2028 09/10/2018, 010 HIB VACCINES Completed 1999, 07/30, 07/18/1999, Additional history exists IPV VACCINES Completed 07/16/2002, 07/30, 07/18/1999, Additional history exists MENINGOCOCCAL VACCINES (ACWY) Completed 09/16/2015, 11/16/2009 HEPATITIS A VACCINES Completed 05/08/2018, 09/16/19 16 SMOKING STATUS SCREENING (Once After 26 Yrs) Completed 07/02/2024 MENINGOCOCCAL VACCINES (B) Aged Out N o longer eligible based on patient's age to complete this topic PNEUMOCOCCAL VACCINES (0-49 years) Aged Out No longer eligible based on patient's age to complete this topic Medical Devices Not on file Procedures Procedure Name Priority Date/Time Associated Diagnosis Comments BASIC METABOLIC PANEL (BMP) Routine 07/02/2024 10:02 AM EDT Iron deficiency anemia, unspecified iron deficiency anemia type History of recurrent deep vein thrombosis from Last 3 Months or Most Recently Relevant to Health Maintenance Results * (ABNORMAL) Basic metabolic panel (07/02/2024 10:02 AM EDT) SODIUM 136 133 - 146 mmol/L [facility] CHLORIDE 100 96 - 108 mmol/L [facility] POTASSIUM 4.0 3.3 - 5.1 mmol/L [facility] CO2 25 21 - 35 mmol/L [facility] BUN 13 6 - 19 mg/dL [facility] CREATININE 0.50 0.5 - 1.5 mg/dL [facility] GLUCOSE 107(H) 70 - 99 mg/dL [facility] CALCIUM 9.4 8.4 - 10.3 mg/dL [facility] EGFR >120 >59 mL/min/1.7 3m2 [facility] Comment:Estimated glomerular filtration rate calculated using the CKD-EPI refit equation. ANION GAP 15 10 - 20 mmol/L [facility] Blood 07/02/2024 10:0 2 AM EDT 07/02/2024 10:18 AM EDT Pita Whiteside PA-C LAB BLOOD BKR ORDERABLES F inal Result [address] [id number] from Last 3 Months or Most Recently Relevant to Health Maintenance Insurance [employer] Care Teams Engine Test Cell Technician Relationship Specialty Start Date End Date Rosalind Silva DO [address] [place] [id number] PCP - General Family Medicine 01/02/24 Pita Whiteside PA-C [address] [place] [address] Physician Burglar Alarm Installer Physician [employer]ar Alarm Installer 07/07/24 Additional Source Comments The information contained in this document represents components of the legal health record. It is not the complete legal health record.[facility]
--- OUTSIDE RECORDS SUMMARY | 2025-02-09 13:02 | XMS_ITS | Encounter Summary ---
Author Organization [employer] Address [address] [facility] [address] [place] [address] Care Team Providers Care Music Instructor Name Role Phone Rosalind Silva DO Primary Care Provider Heber Rodriguez RN Unavailable [phone] Swathi Anderson Unavailable Reason for Visit * Reason Comments Med Change Request Encounter Details Date Type Department Care Team (Late st Contact Info) Description 02/05/2025 Refill [facility] [address] [place], [place] [phone] Candy Gruber NP [address] [place] [address] Cough, unspecified type; Viral illness Social History Tobacco Use Types Packs/Day Years Used Date Smoking Tobacco: Never Passive Smoke Exposure: Never Smokeless Tobacco: Never Alcohol Use Standard [...] as of this encounter Visit Diagnoses Diagnosis Cough, unspecified type Viral illness Unspecified viral infection, in conditions classified elsewhere and of unspecified site documented in this encounter Additional Health Concerns Assessment Noted Time PHQ-9 Depression Total Score: 10 025 9:42 AM EDT documented as of this encounter Care Teams Music Instructor Relationship Specialty Start Date End Date Rosalind Silva DO [address] [place] [address] PCP - General Family Medicine 10/27/18 Hebre Rodriguez, RN [address] [place] [address] Registered Nurse Family Medicine 09/25/24 Swathi Anderson 09/25/24 documented as of this encounter
--- OUTSIDE RECORDS SUMMARY | 2025-02-09 13:02 | XMS_ITS | Encounter Summary ---
Author Organization [employer] Address [address] [facility] [address] [place] [address] Care Team Providers Care Boat Builder Name Role Phone Rosalind Silva DO Primary Care Provider Heber Rodriguez RN Unavailable [phone] Swathi Anderson Unavailable Reason for Visit * Reason Comments Med Change Request Encounter Details Date Type Department Care Team (Late st Contact Info) Description 07/03/2023 Refill [facility] [address] [place], [place] [phone] Rosalind Silva DO [address] [place], [place] [phone] Social History Tobacco Use Types Packs/Day Years [...] on filedocumented in this encounter Care Teams Boat Builder Relationship Specialty Start Date End Date Rosalind Silva DO [address] [place] [address] PCP - General Family Medicine 10/27/18 Heber Rodriguez, RN [address] [place] [address] Registered Nurse Family Medicine 09/25/24 Swathi Anderson 09/25/24 documented as of this encounter
--- OUTSIDE RECORDS SUMMARY | 2025-02-09 13:02 | XMS_ITS ---
Author Organization [facility] [facility] Address [address] [place] [address] [address] [place] [address] Care Team Providers Care Senior Biostatistician/Group Leader Name Role Phone Rosalind Silva DO Primary Care Provider Heber Rodriguez RN Unavailable [phone] Swathi Anderson Unavailable CM Complex Status:Enrolled (Active) Start date:09/25/2024 Enrollment date:10/20/2024 Enrollment reason:ADT Feed Overview ED- Pt went to [facility] on 09/24/24. Case Team Name Relationship Phone Heber Rodriguez RN(Responsible Staff) Registered Jaya majano [phone] Continued Care and Services Coordination
--- OUTSIDE RECORDS SUMMARY | 2025-02-09 13:02 | XMS_ITS | Encounter Summary ---
Author Organization [employer] Address [address] [facility] [address] [place] [address] Care Team Providers Care Fire Investigation Manager Name Role Phone Rosalind Silva DO Primary Care Provider Heber Rodriguez RN Unavailable [phone] Swathi Anderson Unavailable Reason for Visit * Reason Comments Med Refill Encounter Details Date Type Department Care Team (Late st Contact Info) Description 02/08/2025 Refill [facility] [address] [place], [place] [phone] Rosalind Silva DO [address] [place], [place] [phone] Social History Tobacco Use Types Packs/Day Years [...] the past 12 months, has t he [employer], gas, oil or water [employer] threatened to shut off services in your [...] documented as of this encounter Care Teams Fire Investigation Manager Relationship Specialty Start Date End Date Rosalind Silva DO [address] [place] [phone] PCP - General Family Medicine 10/27/18 Heber Rodriguez, RN [address] [place] [address] [place] [address] Registered Nurse Family Medicine 09/25/24 Swathi Anderson 09/25/24 documented as of this encounter
[2025-02-09 13:52] LABS: Hematocrit 40.2 % (37.0-47.0); Hemoglobin 12.7 g/dl (12.0-16.0); Mean Corpuscular HGB Conc 31.6 g/dl (31.0-35.0); Mean Corpuscular Hemoglobin 26.3 pg (27.0-33.0); Mean Corpuscular Volume 83.4 fL (80.0-98.0); NRBC Abs Auto 0.000 X10*3/uL (0.0-0.012); NRBC Pct Auto 0.0 /100WBC (0.0-0.2); Platelet Count 338 X10*3/uL (160-400); Red Blood Count 4.82 X10*6/uL (4.20-5.50); White Blood Count 3.1 X10*3/uL (4.8-10.8)
[2025-02-09 14:18] LABS: Iron 43 mcg/dL (30-160); Percent Iron Saturation 13 % (15-50); Total Iron Binding Capacity 327 mcg/dL (228-428); Unsaturated Iron Binding 284 ug/dL
[2025-02-09 14:23] LABS: Ferritin 11 ng/mL (10-122)
[2025-02-09 14:33] LABS: Folate 9.2 ng/mL (> or = 4.0); Vitamin B12 287 pg/mL (200-900)
[2025-02-09 14:45] LABS: Microalbum/Creatinine Ratio Ur 585.2 ug/mg cr (<30)
[2025-02-10 07:22] LABS: Lyme Abs Screen <0.90 index
[2025-02-14 23:48] LABS: Anti Nuclear Antibody Pattern Nuclear, Homogeneous; Anti Nuclear Antibody Screen POSITIVE (NEGATIVE); Anti Nuclear Antibody Titer 1:80 titer
== END 2025-02-09 10:56 | disposition home or self-care (01) ==
LOC: HO.HHCL 10:55
PROVIDERS: PCP Family Medicine; Visit Provider Family Medicine
DX: Z01.84 Encounter for antibody response examination (principal); I10 Essential (primary) hypertension; D50.9 Iron deficiency anemia, unspecified; M25.50 Pain in unspecified joint
CPT/HCPCS: 36415; 82043; 82570; 82607; 82728; 82746; 83540; 85027; 85652; 86038; 86039; 86140; 86431; 86617; 86618